=== PATIENT | male | born 1945 | race Caucasian/White ===

== ENCOUNTER 2019-04-11 22:31 | Inpatient (IN) ==
--- OUTSIDE RECORDS SUMMARY | 2019-04-11 22:33 | External Medical Summary | Continuity of Care Document ---
:1945 Author Name Li Moreno Address Unavailable Unavailable , Care Team Providers Name Role Phone Sobeida Moreno, P. Unavailable [email or web address] Active medical history not documented Allergies and Adverse Reactions Allergy history not documented Medications Medications not documented Procedures Procedures not documented Immunizations Immunizations not documented Plan of Treatment Planned Observations Planned Goals not documented Results No Known Results Results not documented Encounters Appointment; Rush Vidales M.D. 15-Jan-2010 15:15 Encounter Diagnosis: Problem not documented
[2019-04-11] MEDS ORDERED: LORazepam 2 MG/4 ML VIAL IV STA (23:01)
[2019-04-11] MEDS ORDERED: VANCOMYCIN HCL 1,500 MG in SODIUM CHLORIDE 0.9% 500 ML IV ONE (23:05)
[2019-04-11] MEDS ORDERED: VANCOMYCIN CONSULT ACTIVE PRN (23:05)
[2019-04-11] MEDS ORDERED: cefTRIAXone SODIUM 2,000 MG in DEXTROSE 5% 50 ML IV STA (23:11)
[2019-04-11] MEDS ORDERED: SODIUM CHLORIDE 0.9% 1000ML 1,000 ML IV SCH (23:15)
[2019-04-11 23:35] LABS: INR 1.3 (0.9-1.1)
[2019-04-11 23:37] LABS: Albumin Level 2.2 gm/dl (3.4-5.0); BUN Creatinine Ratio 21.7 (10-20); Calcium 8.2 mg/dl (8.5-10.1); Est GFR (African American) 53.3
[2019-04-11 23:46] LABS: Hematocrit (blood only) 31.5 % (42-52); Hemoglobin 10.9 g/dL (14.0-18.0); Mean Corpuscular Hgb Conc 34.6 g/dL (32-36); Mean Corpuscular Volume 84.2 fL (80-100); Mean Platelet Volume 10.1 fL (7.4-10.4); Platelet Count 156 K/uL (130-400); RDW Coefficient of Variation 13.5 % (11.5-14.5); RDW Standard Deviation 40.9 fL (36.4-46.3); Red Blood Count 3.74 M/uL (4.7-6.1); White Blood Count 35.38 K/uL (4.8-10.8)
[2019-04-11 23:47] LABS: Basophils # (auto) 0.03 K/uL (0-0.2); Basophils % (auto) 0.1 %; Dohle Bodies 2+; Echinocytes 3+; Eosinophils # (auto) 0.01 K/uL (0-0.5); Immature Granulocytes # (auto) 0.32 K/uL (0.00-0.02); Immature Granulocytes % (auto) 0.9 %; Lymphocytes # (auto) 1.09 K/uL (1.2-3.4); Lymphocytes % (auto) 3.1 %; Monocytes # (auto) 1.37 K/uL (0.11-0.59); Monocytes % (auto) 3.9 %; Neutrophils # (auto) 32.56 K/uL (1.4-6.5); Toxic Vacuolation 1+
[2019-04-11 23:51] LABS: Albumin Globulin Ratio 0.5 (0.9-2); Bilirubin,Total 0.9 mg/dl (0.2-1); C Reactive Protein 30.4 mg/dl (0-0.29); Globulin 4.1 gm/dl (2.5-4.0); Total Protein 6.3 gm/dl (6.4-8.2); Troponin I 1.52 ng/ml (0-0.045)
--- NOTE | 2019-04-12 00:01 | Emergency Department Note ---
Entered by Jose Maria Soares acting as a scribe for History of Present Illness General Chief complaint: Altered Mental Status Stated complaint: AMS, POSSIBLE INFECTION Time Seen by Provider: 04/11/19 22:50 Source: family (daughter) History of Present Illness Onset (ago): hour(s) (several) Location: head Pain Consistency: + other (episode) Quality: + other (altered mental status) Associated symptoms: + other (+feeling "ill", +lightheadness, +foot infection) The patient is a 73 year old male who presents to the Emergency Room with complaints of an episode of altered mental status over the last several hours. The RN stated that the patient is very agitated, words are slurred, and that it took 3 people to give him an IV. The patient's daughter states that he has become violent in the hospital. The daughter states that the patient was taken to their PCP today due to the patient not feeling well and experiencing lightheadedness this morning. The daughter notes that their family doctor at [facility] diagnosed the patient with an infection in left foot. Later this kkio natasha, the daughter notes that she believed the patient was resting, but she reports that the patient would not respond to commands or open eyes a few hours ago. The daughter states that eventually the patient would only respond with, "I am ok". The daughter reports his glucose levels are at 192 which is OK for his standards, according to the daughter. . 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 The daughter also notes that the patient has a glass left eye. Home Medications Home Medications Medication Instructions Recorded Confirmed Type alpha lipoic acid 100 mg PO BID 04/11/19 04/12/19 History aspirin [Aspir-81] 81 mg PO DAILY 04/11/19 04/11/19 History atorvastatin 20 mg PO DAILY 04/11/19 04/12/19 History bimatoprost [Lumigan] 1 drp OPR HS 04/11/19 04/11/19 History cephalexin 500 mg PO TID 04/11/19 04/11/19 History insulin aspart U-100 [Novolog 0 unit SUBCUT DIRECTED 04/11/19 04/12/19 History Flexpen U-100 Insulin] levothyroxine 125 mcg PO 5XWK 04/11/19 04/12/19 History multivitamin 1 tab PO DAILY 04/11/19 04/11/19 History omeprazole 20 mg PO .BIDM 30 MINS. PRIOR 04/11/19 04/11/19 History omeprazole 20 mg PO .BIDM, 30 MIN PRIOR 04/11/19 04/12/19 History sulfamethoxazole-trimethoprim 1 tab PO BID 04/11/19 04/11/19 History [Bactrim DS] timolol 1 drp OPR QAM 04/11/19 04/11/19 History tramadol 50 mg PO Q6H PRN 04/11/19 04/11/19 History urea 1 applic TOPICAL BID PRN 04/11/19 04/11/19 History cilostazol 100 mg PO BID 04/12/19 04/12/19 History gabapentin 100 mg PO TID 04/12/19 04/12/19 History insulin glargine [Lantus Solostar 20 unit SUBCUT DAILY 04/12/19 04/12/19 History U-100 Insulin] Allergies Allergy/AdvReac Type Severity Reaction Status Date / Time No Known Allergies Verified 04/11/19 23:54 Past Med/Surg History Medical History Amputated below knee Foot infection Family History Other No significant family history Social History Feels Safe at Home: Yes Smoking Status: Unknown if ever smoked Review of Systems See HPI for pertinent positives & negatives. and A total of 10 systems reviewed and were otherwise negative Physical Exam Vital Signs Vital Signs - 24 hr 04/11/19 22:21 04/11/19 23:45 04/12/19 00:16 Temperature 37.2 C Temperature Source Oral Sepsis Recent Fever Within 48 Hours No Sepsis Action Taken by Nursing No Action Required Pulse Rate 123 H Pulse Rate [Right Finger] 120 H 123 H Respiratory Rate 23 22 22 Respiratory Effort / Characteristics Non-Labored Respiratory Depth Normal Respiratory Pattern Regular Blood Pressure 118/62 Blood Pressure [Left Arm] 102/82 110/85 Blood Pressure Mean 80 Blood Pressure Mean [Left Arm] 88 93 Pulse Oximetry 90 94 96 Oxygen Delivery Method Room Air Nasal Cannula Nasal Cannula Oxygen Flow Rate 3 3 04/12/19 01:13 Temperature Temperature Source Sepsis Recent Fever Within 48 Hours Sepsis Action Taken by Nursing Pulse Rate Pulse Rate [Right Finger] 128 H Respiratory Rate 20 Respiratory Effort / Characteristics Respiratory Depth Respiratory Pattern Blood Pressure Blood Pressure [Left Arm] 128/85 Blood Pressure Mean Blood Pressure Mean [Left Arm] 99 Pulse Oximetry 96 Oxygen Delivery Method Nasal Cannula Oxygen Flow Rate 3 CONSTITUTIONAL/VITAL SIGNS: Reviewed / noted above. GENERAL: Agitated. INTEGUMENTARY: Warm, dry, and [place]. HEAD: Normocephalic. EYES: without scleral icterus or trauma. ENT/OROPHARYNX: clear and moist. Mucous membrane dry. LYMPHADENOPATHY/NECK: Is supple without lymphadenopathy or meningismus. RESPIRATORY: Lungs clear and equal. CARDIOVASCULAR: Regular rate and rhythm. GI/ABDOMEN: Soft and nontender. No organomegaly or pulsatile mass. No rebound or guarding. Normal bowel sounds. EXTREMITIES: Warm and well perfused. Left foot open wound with purulent drainage and foul smell. Right below knee amputation. BACK: No CVA tenderness. NEUROLOGICAL: Intact without focal deficits. PSYCHIATRIC: normal affect. MUSCULOSKELETAL: Normally developed with good muscle tone. Course 2250: Past medical records reviewed. The patient was evaluated in room A3. A complete history and physical exam was performed. 0002: I reevaluated and updated the patient on his case. 0003: I discussed the case with Dr. Pritesh Grove. Dr. Lambert will further evaluate the patient. Consultations Consultation #1: I discussed the case with Dr. Pritesh Grove. Dr. Lambert will further evaluate the patient. Time: 00:03 Administered Medications Discontinued Medications Lorazepam (Ativan) 2 mg in 4 mls @ 4 mls/min IV NOW STA Stop: 04/11/19 23:02 Last Admin: 04/11/19 23:47 Dose: 4 mls/min Documented by: [id number] Sodium Chloride (Nss 1000ml) 1,000 mls @ 999 mls/hr IV .Q1H1M JACQUI Stop: 04/12/19 00:15 Last Admin: 04/12/19 00:03 Dose: 999 mls/hr Documented by: [id number] Vancomycin HCl 1,500 mg/ (Sodium Chloride) 530 mls @ 200 mls/hr IV NOW ONE; Protocol Stop: 04/12/19 01:34 Last Admin: 04/12/19 00:51 Dose: 200 mls/hr Documented by: [id number] Ceftriaxone Sodium 2,000 mg/ (Dextrose) 70 mls @ 100 mls/hr IV NOW STA; Protocol Stop: 04/11/19 23:52 Last Infusion: 04/12/19 00:51 Dose: 0 mls/hr Documented by: [id number] Admin: 04/12/19 00:10 Dose: 100 mls/hr Documented by: [id number] Medical Decision Making Differential Diagnosis Differential diagnosis: Etiologies such as metabolic, infection, hypo/hyperglycemia, electrolyte abnormalities, cardiac sources, intracerebral event, toxicologic, neurologic, as well as others were entertained. Medical Records Attestation: I reviewed the patient's medical records. Home Medications Current Medication List: was personally reviewed by me Laboratory Data Attestation: I reviewed the patient's lab results. Result diagrams: 04/11/19 22:45 04/11/19 22:45 Lab Results 04/11/19 04/11/19 04/11/19 Range/Units 22:45 22:45 22:45 WBC 35.38 H* (4.8-10.8) K/uL RBC 3.74 L (4.7-6.1) M/uL Hgb 10.9 L (14.0-18.0) g/dL Hct 31.5 L (42-52) % MCV 84.2 (80-100) fL MCH 29.1 (25-34) pg MCHC 34.6 (32-36) g/dL RDW Std Deviation 40.9 (36.4-46.3) fL RDW Coeff of Toy 13.5 (11.5-14.5) % Plt Count 156 (130-400) K/uL MPV 10.1 (7.4-10.4) fL Immature Gran % (Auto) 0.9 % Neut % (Auto) 92.0 % Lymph % (Auto) 3.1 % [place] % (Auto) 3.9 % Eos % (Auto) 0.0 % Baso % (Auto) 0.1 % Immature Gran # (Auto) 0.32 H (0.00-0.02) K/uL Neut # (Auto) 32.56 H (1.4-6.5) K/uL Lymph # (Auto) 1.09 L (1.2-3.4) K/uL [place] # (Auto) 1.37 H (0.11-0.59) K/uL Eos # (Auto) 0.01 (0-0.5) K/uL Baso # (Auto) 0.03 (0-0.2) K/uL Toxic Vacuolation 1+ Dohle Bodies 2+ Echinocytes 3+ ESR 73 H (0-14) mm/hr PT 13.0 H (9.0-12.0) Seconds INR 1.3 H (0.9-1.1) Sodium (136-145) mmol/L Potassium (3.5-5.1) mmol/L Chloride (98-107) mmol/L Carbon Dioxide (21-32) mmol/L Anion Gap (3-11) BUN (7-18) mg/dl Creatinine (0.6-1.4) mg/dl Est Cr Clr Drug Dosing ml/min Est GFR ( Amer) Est GFR (Non-Af Amer) BUN/Creatinine Ratio (10-20) Glucose (70-99) mg/dl POC Lactic Acid Alonso (0.90-1.70) mmol/L Calcium (8.5-10.1) mg/dl Total Bilirubin (0.2-1) mg/dl AST (15-37) U/L ALT (12-78) U/L Alkaline Phosphatase (45-117) U/L Troponin I (0-0.045) ng/ml C-Reactive Protein (0-0.29) mg/dl Total Protein (6.4-8.2) gm/dl Albumin (3.4-5.0) gm/dl Globulin (2.5-4.0) gm/dl Albumin/Globulin Ratio (0.9-2) Procalcitonin (0-0.5) ng/ml 04/11/19 04/11/19 04/11/19 Range/Units 22:45 22:45 22:59 WBC (4.8-10.8) K/uL RBC (4.7-6.1) M/uL Hgb (14.0-18.0) g/dL Hct (42-52) % MCV (80-100) fL MCH (25-34) pg MCHC (32-36) g/dL RDW Std Deviation (36.4-46.3) fL RDW Coeff of Toy (11.5-14.5) % Plt Count (130-400) K/uL MPV (7.4-10.4) fL Immature Gran % (Auto) % Neut % (Auto) % Lymph % (Auto) % [place] % (Auto) % Eos % (Auto) % Baso % (Auto) % Immature Gran # (Auto) (0.00-0.02) K/uL Neut # (Auto) (1.4-6.5) K/uL Lymph # (Auto) (1.2-3.4) K/uL [place] # (Auto) (0.11-0.59) K/uL Eos # (Auto) (0-0.5) K/uL Baso # (Auto) (0-0.2) K/uL Toxic Vacuolation Dohle Bodies Echinocytes ESR (0-14) mm/hr PT (9.0-12.0) Seconds INR (0.9-1.1) Sodium 130 L (136-145) mmol/L Potassium 4.0 (3.5-5.1) mmol/L Chloride 94 L (98-107) mmol/L Carbon Dioxide 22 (21-32) mmol/L Anion Gap 14.0 H (3-11) BUN 32 H (7-18) mg/dl Creatinine 1.47 H (0.6-1.4) mg/dl Est Cr Clr Drug Dosing 42.0 ml/min Est GFR ( Amer) 53.3 Est GFR (Non-Af Amer) 46.0 BUN/Creatinine Ratio 21.7 H (10-20) Glucose 157 H (70-99) mg/dl POC Lactic Acid Alonso 6.18 H (0.90-1.70) mmol/L Calcium 8.2 L (8.5-10.1) mg/dl Total Bilirubin 0.9 (0.2-1) mg/dl AST 32 (15-37) U/L ALT 58 (12-78) U/L Alkaline Phosphatase 448 H (45-117) U/L Troponin I 1.520 H* (0-0.045) ng/ml C-Reactive Protein 30.40 H (0-0.29) mg/dl Total Protein 6.3 L (6.4-8.2) gm/dl Albumin 2.2 L (3.4-5.0) gm/dl Globulin 4.1 H (2.5-4.0) gm/dl Albumin/Globulin Ratio 0.5 L (0.9-2) Procalcitonin 4.23 H (0-0.5) ng/ml Imaging Data Radiologist's Impression: Radiology results as stated below per my review and the radiologist's interpretation: CT HEAD: No cross intracranial hemorrhage, mass effect or edema. No evidence of acute cortical stroke. Periventricular small vessel ischemic change. No midline shift or hydrocephalus. Diffuse parenchymal atrophy. Atherosclerotic calcifications of the carotid siphons and vertebrobasilar arteries. Visualized sinuses and mastoid air cells are clear. Impression: 1. No evidence of acuter intracranial pathology. 2. Diffuse involutional changes and chronic ischemic small vessel white matter disease. ECG Data Attestation: I personally reviewed and interpreted this ECG as follows: Indication: altered mental status Rate (beats per minute): 130 Rhythm: sinus tachycardia Findings: + other (anterior lateral ST depression) and + PVC; no ST elevation Blood Pressure Blood Pressure Findings: Normal blood pressure MDM Narrative This is a 73-year-old male who presents to the ED with a chief complaint of alteration mental status as well as a left foot infection. The patient was seen by the PCP today for a left foot infection. He was started on Keflex. The patient has a large open wound to the left foot. The patient is a poor historian and provides no additional information other than what the family provided as the patient is altered. He was agitated per nursing staff and required 2 mg of IV Ativan to calm down. Positive findings on exam reveal an open wound to left foot that is draining purulent discharge. It is foul- smelling. Chronic findings include a right BKA and a glass left thigh. The patient's white blood cell count was 35,000. Hemoglobin is 10.9. Sed rate is 73. CRP is 30. Troponin was elevated at 1.52. BUN is 32 and creatinine is 1.47. Twelve-lead EKG reveals a sinus tach at a rate of [address] depressions in the anterolateral leads and occasional PVC. The patient was given 1 L of normal saline IV. Additional IV fluids were not administered as his chest x-ray has the appearance of congestive heart failure or fluid overload. He was given IV vancomycin as well as IV Rocephin. I spoke with the hospitalist, who will see the patient for further inpatient evaluation and care. Impression & Plan Altered mental status, Osteomyelitis, Elevated troponin Critical Care Time Critical Care Time: Yes Total Critical Care Time: 42 I have personally spent greater than 42 minutes of critical care time in the direct management of this patient. This includes bedside care, interpretation of diagnostic studies, and testing, discussion with consultants, patient, and family members, and other required patient management activities. This 42 minutes is in excess of all separately billable procedures. Discharge Plan Visit Data Chief Complaint: Altered Mental Status Stated Complaint: AMS, POSSIBLE INFECTION ED Provider: Van Sheth Discharge Problem: Altered mental status, Osteomyelitis, Elevated troponin Patient Disposition: Being Evaluated by Hospitalist Forms Stand Alone Forms: My [facility] Prescriptions Prescriptions: No Action multivitamin Tablet 1 tab PO DAILY RF: 0 atorvastatin 20 mg Tablet 20 mg PO DAILY RF: 0 urea 40 % Cream 1 applic TOPICAL BID PRN (Reason: CALLOUSES ON FEET) RF: 0 sulfamethoxazole-trimethoprim [Bactrim DS] 800-160 mg Tablet 1 tab PO BID RF: 0 aspirin [Aspir-81] 81 mg Tablet,Delayed Release (Dr/Ec) 81 mg PO DAILY RF: 0 tramadol 50 mg Tablet 50 mg PO Q6H PRN (Reason: Pain) RF: 0 cephalexin 500 mg Capsule 500 mg PO TID RF: 0 levothyroxine 125 mcg Tablet 125 mcg PO 5XWK RF: 0 timolol 0.25 % Drops 1 drp OPR QAM RF: 0 omeprazole 20 mg Capsule,Delayed Release(Dr/Ec) 20 mg PO .BIDM 30 MINS. PRIOR RF: 0 Novolog Flexpen U-100 Insulin 100 unit/mL (3 mL) Insulin Pen SUBCUT DIRECTED RF: 0 alpha lipoic acid 100 mg Capsule 100 mg PO BID RF: 0 omeprazole 20 mg Tablet,Delayed Release (Dr/Ec) 20 mg PO .BIDM, 30 MIN PRIOR RF: 0 Lumigan 0.01 % Drops 1 drp OPR HS RF: 0 cilostazol 100 mg Tablet 100 mg PO BID RF: 0 gabapentin 100 mg Capsule 100 mg PO TID RF: 0 Lantus Solostar U-100 Insulin 100 unit/mL (3 mL) Insulin Pen 20 unit SUBCUT DAILY RF: 0 Referrals Referrals: Ajith Alfaro DO [Primary Care Provider] - Discharge Problem: Altered mental status Qualifiers: Altered mental status type: delirium Qualified Code(s): R41.0 - Disorientation, unspecified Osteomyelitis Qualifiers: Osteomyelitis type: acute hematogenous Osteomyelitis location: foot Laterality: left Qualified Code(s): M86.072 - Acute hematogenous osteomyelitis, left ankle and foot The scribe's documentation has been prepared under my direction and personally reviewed by me in its entirety. I confirm that the note above accurately reflects all work, treatment, procedures, and medical decision making performed by me.
[2019-04-12] MEDS ORDERED: VANCOMYCIN HCL 1,000 MG in SODIUM CHLORIDE 0.9% 250 ML IV SCH ×2 (02:51→07:00)
[2019-04-12] MEDS ORDERED: VANCOMYCIN CONSULT ACTIVE PRN ×2 (02:51→07:00)
[2019-04-12] MEDS ORDERED: PIPERACILLIN/TAZOBACTAM 4.5 GM in DEXTROSE 5% 100 ML IV ONE (02:51)
[2019-04-12] MEDS ORDERED: PIPERACILL/TAZOBAC CONSULT ACTIVE PRN (02:51)
[2019-04-12] MEDS ORDERED: ICU PROTOCOL FOR HYPERGLYCEMIA PRN (02:51)
[2019-04-12] MEDS ORDERED: LORazepam 1 MG/2 ML VIAL IV STA (02:53)
--- NOTE | 2019-04-12 02:56 | Critical Care Consultation ---
Date of Consultation April 12, 2019 Assessment & Plan (1) Admitted to intensive care unit: Reason Critically Ill: 73-year-old male with presumed osteomyelitis of the left lower extremity presenting with SIRS and AMS. NEURO - CAM ICU: Positive Altered mental status: CT the head unremarkable. Presumed metabolic encephalopathy in the setting of severe infection. CARDIAC/VASCULAR - Elevated troponin. Likely demand on presentation with tachycardia and labile blood pressures. Trend troponins. Monitor on telemetry. RESPIRATORY - No known history of respiratory disorders. Supplemental O2 as needed. GI/NUTRITION - N.p.o. RENAL/LYTES - ALBERT on CKD. Agree with supplemental fluids. - Lucas in place - Strict I&Os. ENDO - Significant past medical history of diabetes with amputations x2. BSGs per unit protocol. ISS --> gtt per unit policy. HEME - Stable H&H. Significant leukopenia in the setting of infection. ID - SIRS from likely LLE osteomyelitis. Consult orthopedic surgery. Received vancomycin and Rocephin in the emergency department. Changed to Zosyn. Will continue with Rocephin and vancomycin in the setting of presumed osteomyelitis. LINES/IV ACCESS - PIVs x1 DVT PROPHYLAXIS - SCDs This will be billed as a level 5 inpatient chart. Thank you for allowing us to participate in the care of this patient. Please refer to my attending physician's documentation for any further recommendations. (2) Elevated troponin: (3) Osteomyelitis: (4) Altered mental status: (5) NSTEMI (non-ST elevated myocardial infarction): (6) Acute kidney injury superimposed on CKD: Supervising Physician Co-Signing Physician Notes I have seen and examined this patient with Jasen Perea PA-C and agree with his assessment and plan of care. We are going to continue with current plan of care as prescribed. Dr. Natali Fournier. History of Present Illness Attending Physician: Jamie Graff MD Patient is a 73-year-old male with a significant past medical history of diabetes with resultant right lower extremity BKA and left lower extremity partial foot amputation presented to the emergency department today with sepsis presumed from left foot infection. Patient with altered mental status at home which has worsened over the last several hours. Patient was placed on Keflex today for wound infection to the left foot. Presumed source of infection. Patient unable to participate in history of present illness secondary to altered mental status. Allergies Allergy/AdvReac Type Severity Reaction Status Date / Time No Known Allergies Verified 04/11/19 23:54 Home Medications Home Medications Medication Instructions Recorded Confirmed Type alpha lipoic acid 100 mg PO BID 04/11/19 04/12/19 History aspirin [Aspir-81] 81 mg PO DAILY 04/11/19 04/11/19 History atorvastatin 20 mg PO DAILY 04/11/19 04/12/19 History bimatoprost [Lumigan] 1 drp OPR HS 04/11/19 04/11/19 History cephalexin 500 mg PO TID 04/11/19 04/11/19 History insulin aspart U-100 [Novolog 0 unit SUBCUT DIRECTED 04/11/19 04/12/19 History Flexpen U-100 Insulin] levothyroxine 125 mcg PO 5XWK 04/11/19 04/12/19 History multivitamin 1 tab PO DAILY 04/11/19 04/11/19 History omeprazole 20 mg PO .BIDM 30 MINS. PRIOR 04/11/19 04/11/19 History omeprazole 20 mg PO .BIDM, 30 MIN PRIOR 04/11/19 04/12/19 History sulfamethoxazole-trimethoprim 1 tab PO BID 04/11/19 04/11/19 History [Bactrim DS] timolol 1 drp OPR QAM 04/11/19 04/11/19 History tramadol 50 mg PO Q6H PRN 04/11/19 04/11/19 History urea 1 applic TOPICAL BID PRN 04/11/19 04/11/19 History cilostazol 100 mg PO BID 04/12/19 04/12/19 History gabapentin 100 mg PO TID 04/12/19 04/12/19 History insulin glargine [Lantus Solostar 20 unit SUBCUT DAILY 04/12/19 04/12/19 History U-100 Insulin] Patient History Medical History PVD (peripheral vascular disease) Sepsis Acute systolic heart failure Cardiomyopathy Elevated troponin I level Acute kidney injury superimposed on CKD NSTEMI (non-ST elevated myocardial infarction) Arthritis Cardiomyopathy Diabetes Foot infection Surgical History Amputated below knee Amputated toe of left foot Family History Other No significant family history Social History Preferred Language: Turkmen Communication Ability: Unable Second Vp Hr Assessment Required: No Beliefs That Will Affect Care: None Current Living Situation: Family Other Information That Helps Us Care for You: No Feels Safe at Home: Declines to Answer Smoking Status: Unknown if ever smoked Hx Alcohol Use: No Hx Substance Use: No Review of Systems Review of Systems: Unobtainable due to cognitive status Physical Exam Physical Exam: VITAL SIGNS - Vital signs and nursing notes were reviewed. GENERAL - 73-year-old male appearing his stated age. Attempting to pull out IVs. SKIN -ulcerative wound noted to the base of the left foot with purulent discharge and foul smell. HEAD - NC/AT. EYES -glass eye in the left eye. Right eye without significant findings otherwise. EARS - No deformities of external structures noted on gross examination bilaterally. NOSE - Midline and without cyanosis. MOUTH/OROPHARYNX - Without perioral cyanosis. Buccal mucosa pink and dry and without leukoplakia. NECK - Neck with FROM. Supple to palpation. No nuchal rigidity. LUNGS - Chest wall symmetric without accessory muscle use, intercostals retractions, or central cyanosis. Normal vesicular breath sounds CTA B/L. No wheezes, rales, or rhonchi appreciated. CARDIAC - RRR with S1/S2. No murmur, rubs, or gallops appreciated. ABDOMEN - Abdominal contour flat without pulsations or visible masses. BS normoactive all four quadrants. No tenderness, palpable masses, hepatosplenomegaly, or ascites noted. EXTREMITIES -right lower extremity BKA. LEFT lower extremity partial foot amput ation with wound as described above. Moving both extremities equally bilaterally. NEUROLOGIC -no focal neurological deficits. Unable to assess secondary to patient's mental status. Results & Data Vital Signs (Past 12 Hours) Vital Signs Temp Pulse Pulse Resp BP BP Pulse Ox 04/12/19 01:56 121 H 20 105/63 95 04/12/19 01:13 128 H 20 128/85 96 04/12/19 00:16 123 H 22 110/85 96 04/11/19 23:45 120 H 22 102/82 94 04/11/19 22:21 37.2 C 123 H 23 118/62 90 PG Care Time/CCT Total # of Minutes Spent Total Time Spent with Patient: Total time spent is greater than 50% in coordination of care (as documented) at patient's floor/unit and/or counseling patient: (1) Altered mental status Altered mental status type: delirium Qualified Code(s): R41.0 - Disorientation, unspecified (2) Osteomyelitis Laterality: left Osteomyelitis location: foot Osteomyelitis type: acute hematogenous Qualified Code(s): M86.072 - Acute hematogenous osteomyelitis, left ankle and foot
[2019-04-12 03:30] LABS: Appearance Urine Cloudy (Clear); Color Urine Dark Yellow; Epithelial Cell Urine Auto >30 /lpf (0-5); Glucose Urine UA Negative (Negative); Ketones Urine Trace (Negative); Leukocyte Esterase Urine Trace (Negative); Nitrite Urine Positive (Negative); Protein Urine 1+ (Negative); Specific Gravity Urine 1.024 (1.000-1.030); Urobilinogen Urine Negative (Negative)
--- NOTE | 2019-04-12 03:33 | History and Physical Report ---
DATE OF ADMISSION: 04/12/2019 CHIEF COMPLAINT: Sepsis. HISTORY OF PRESENT ILLNESS: This is a 73-year-old male with past medical history significant for type 1 diabetes, peripheral angiopathy due to diabetes, hypothyroidism, hyperlipidemia, reflux esophagitis, history of right BKA, status post transmetatarsal amputation of the left foot, contractures of muscles of both hands, blindness in the left eye. Presents with confusion and found to be in sepsis. The patient lives with daughter. He walks with the help of crutches, but lately his appetite is down and he was not feeling good. Complains of pain in his left foot. He has an ulcer in the left foot for some time now and it was draining today and he was feeling weak and dizzy, so he went to see his family doctor today.Was prescribed antibiotics, Keflex and Bactrim. But later in the day when daughter woke him up at 6.30 she saw him to get confused and agitated. It was difficult even to check his blood sugars, so he was brought in here. The patient was confused and agitated in the ER, he was tachycardic. Labs showed white count of 35,000 and point of care lactic acid was 6.18 and troponin I was 1.5. Procalcitonin was 4.23 and was given a liter of fluid and started on vancomycin and Rocephin and was called for admission. Currently, patient is still agitated, could not get any history from the patient. As per daughter, apparently was doing okay until this happened. There was no fever at home. No cough. He does complain of back pain. His bowels are moving okay and lately he is not urinating much. ALLERGIES: No known drug allergies. PAST MEDICAL HISTORY: As mentioned above. PAST SURGICAL HISTORY: Right below-knee amputation, amputation of metatarsal, left foot. Left lower extremity angioplasty of femoral popliteal. MEDICATIONS: The patient is on alpha-lipoic acid 100 mg b.i.d., omeprazole 20 mg p.o. b.i.d., Keflex and Bactrim, Lipitor 20 mg p.o. daily, levothyroxine 125 mcg p.o. daily, NovoLog sliding scale, Lantus 20 units daily, gabapentin 100 mg p.o. b.i.d., Pletal 100 mg p.o. b.i.d., Lumigan 0.01% ophthalmic solution 1 drop in the right eye at bedtime, timolol 0.25% one drop into right eye daily, urea 40% cream apply to calluses on foot as needed, multivitamins p.o. daily, aspirin 81 mg p.o. daily. SOCIAL HISTORY: Patient is , lives with his daughter. Former smoker, quit in 1989, smoked 3 packs a day for 30 years as per the records, no drug use. REVIEW OF SYMPTOMS: As per HPI. Rest of the review of systems negative. PHYSICAL EXAMINATION: GENERAL: The patient is of moderate built, is currently agitated. VITAL SIGNS: Temperature 37.2, pulse 120s, respiratory rate 20, blood pressure 105/63, oxygen 95% on 3 liters. HEENT: Left eye is a glass eye. Right eye, pupil is reactive to light. No pallor, no icterus. NECK: No JVD, no neck masses, no carotid bruits. CARDIOVASCULAR: S1, S2 heard. Tachycardia. No murmurs. RESPIRATORY SYSTEM: Normal AP diameter. No accessory muscle use. No wheezing, no crackles. ABDOMEN: Soft, bowel sounds, very sluggish. No distention, no guarding. CENTRAL NERVOUS SYSTEM: Currently not oriented, agitated, moves extremities. EXTREMITIES: Status post right BKA, status post transmetatarsal amputation left foot. Left stump on the bottom of the stump has a large ulcer, which is draining and foul smelling. LABORATORY DATA: WBC 35.38, hemoglobin 10.9, hematocrit 31.5, platelets 156. PT 39, INR 1.3. Sodium 130, potassium 4, chloride 94, CO2 of 22, BUN 32, creatinine 1.47, serum glucose 157, point of care lactic acid 6.18, calcium 8.2, total bilirubin 0.9, AST 32, ALT 58, alkaline phosphatase 448, troponin I of 1.52. Procalcitonin 4.23. IMAGING DATA: Chest x-ray, mild congestion seen. No acute infiltrates seen. Ankle x-ray and CT of the head, official report pending. EKG: Sinus tachycardia rate of 130. St depression in the anterolateral leads and poor quality EKG. ASSESSMENT AND PLAN: This is a 73-year-old male who presents with severe sepsis. 1. Severe sepsis, patient is confused. Metabolic encephalopathy from sepsis. . Point of care lactic acid 6.1, white count is 35,000, tachycardic. Received 1 L of fluid and vancomycin and Rocephin in the ER. We will continue with IV vancomycin and IV Zosyn. Follow the blood cultures, urine cultures, and wound cultures. Closely monitor the hemodynamics in the ICU. Got consent for PICC line. We will repeat lactic acid within 6 hours. 2. Diabetes. We will cut back on Lantus to [address] on insulin scale. Follow the blood sugars, follow HbA1c level. 3. Hypothyroidism, placed on IV Synthroid. 4. Gastroesophageal reflux disease, placed on IV Pepcid. 5. Hyperlipidemia. Continue statin whenever patient is able to take. 6. Peripheral vascular disease, statin and aspirin whenever patient is able to take p.o. 7. Acute kidney injury. Baseline creatinine of 1, current creatinine of 1.4, probably secondary to above. Getting fluids. We will follow the labs. 8. Elevated troponin, most likely demand ischemia secondary to severe sepsis. We will follow the serial cardiac enzymes, echocardiogram, and also some congestion on chest x-ray. We will follow the echo. Follow the repeat chest x-ray in the a.m. 9. Hyponatremia. Sodium of 130. Getting fluids. Follow the labs in the a.m. 10. Deep venous thrombosis prophylaxis, heparin subcutaneously. 11. Disposition: Admit to ICU. Level 1 full code only if there is chance of recovery as per my discussion with the daughter. Disposition to be determined. MTDD
[2019-04-12 03:46] LABS: Bilirubin Urine Negative (Negative); Ictotest Urine Negative (Negative)
[2019-04-12] MEDS: SODIUM CHLORIDE 0.9% 1000ML 1,000 ML IV SCH ×2 (03:55→08:13)
[2019-04-12 03:57] LABS: Sperm Urine Present (None Prsent)
[2019-04-12 03:58] LABS: Bacteria Urine Automated 1+ (Negative)
[2019-04-12] MEDS ORDERED: GLUCOSE 10 TABS/TUBE PO PRN (04:15)
[2019-04-12] MEDS ORDERED: DEXTROSE 50% 50 ML SYRINGE IV PRN (04:15)
[2019-04-12] MEDS ORDERED: GLUCOSE 40% GEL 15 GM TUBE PO PRN (04:15)
[2019-04-12] MEDS ORDERED: GLUCAGON FOR INJ 1 MG VIAL SQ PRN (04:15)
[2019-04-12] MEDS ORDERED: CARBOHYDRATES FOR HYPOGLYCEMIA PO PRN (04:15)
[2019-04-12 04:54] LABS: BUN Creatinine Ratio 24.7 (10-20); Calcium 7.9 mg/dl (8.5-10.1); Creatinine Clr Calc Pharmacy 52.3 ml/min; Est GFR (African American) 69.5; Magnesium 1.7 mg/dl (1.8-2.4); Potassium 4.3 mmol/L (3.5-5.1)
[2019-04-12 05:14] LABS: Bilirubin Direct 0.5 mg/dl (0-0.2); Bilirubin,Total 0.8 mg/dl (0.2-1); Phosphorus 3.4 mg/dl (2.5-4.9); Troponin I 2.12 ng/ml (0-0.045)
[2019-04-12 05:21] LABS: Hematocrit (blood only) 30.4 % (42-52); Hemoglobin 10.7 g/dL (14.0-18.0); Mean Corpuscular Hgb Conc 35.2 g/dL (32-36); Mean Corpuscular Volume 84.2 fL (80-100); Mean Platelet Volume 9.8 fL (7.4-10.4); Platelet Count 142 K/uL (130-400); RDW Coefficient of Variation 13.4 % (11.5-14.5); RDW Standard Deviation 40.8 fL (36.4-46.3); Red Blood Count 3.61 M/uL (4.7-6.1); White Blood Count 37.96 K/uL (4.8-10.8)
[2019-04-12 05:22] LABS: Basophils # (auto) 0.02 K/uL (0-0.2); Basophils % (auto) 0.1 %; Dohle Bodies 1+; Echinocytes 1+; Immature Granulocytes # (auto) 0.49 K/uL (0.00-0.02); Immature Granulocytes % (auto) 1.3 %; Lymphocytes # (auto) 0.89 K/uL (1.2-3.4); Lymphocytes % (auto) 2.3 %; Monocytes # (auto) 1.29 K/uL (0.11-0.59); Monocytes % (auto) 3.4 %; Neutrophils # (auto) 35.27 K/uL (1.4-6.5); Neutrophils % (auto) 92.9 %; Platelet Estimate Normal (Normal); Toxic Vacuolation 1+
[2019-04-12] MEDS ORDERED: HEPARIN SOD 5,000 UNIT/0.5 ML VIAL SQ SCH (06:00)
--- NOTE | 2019-04-12 06:44 | CT Scan Report ---
CT SCAN OF THE ABDOMEN AND PELVIS WITHOUT CONTRAST CLINICAL HISTORY: Unexplained sepsis. Elevated alkaline phosphatase. COMPARISON STUDY: No previous studies for comparison. TECHNIQUE: CT scan of the abdomen and pelvis was performed from the lung bases to the proximal femurs . Images are reviewed in the axial, sagittal, and coronal planes. IV contrast was not administered fo r this examination. A dose lowering technique was utilized adhering to the principles of ALARA. CT DOSE: 623.29 mGy.cm FINDINGS: Lower chest: There is significant respiratory motion artifact. There are bilateral pleural effusions with associated dependent basilar airspace opacities. Liver: The unenhanced liver is normal in size, contour, and attenuation. There is no intrahepatic samantha iary ductal dilatation. Gallbladder: Unremarkable. Spleen: Normal in size and attenuation. Pancreas: Unremarkable. Adrenal glands: Unremarkable. Kidneys: The unenhanced kidneys are normal in size without hydronephrosis. There is no contour deform ing renal mass lesion. No renal calculi are identified. Bowel: There are no transition zones indicate bowel obstruction. There is no evidence of acute divert iculitis. There are no findings to indicate acute appendicitis. There is suspected calcific hyperdens e material within the distal appendix. Peritoneum: There is no intraperitoneal free air or abdominal ascites. There is a fat-containing umbi lical hernia. Vasculature: The abdominal aorta is normal in course and caliber. Adenopathy: None. Pelvic viscera: There is an indwelling Lucas catheter present. Skeletal structures: There are old pubic rami fractures. There is an old deformity left iliac crest. IMPRESSION: 1. Examination compromised due to motion artifact 2. Bilateral pleural effusions with associated basilar airspace opacities 3. No evidence of bowel obstruction. No evidence of free air. 4. No evidence of acute appendicitis. No evidence of acute diverticulitis. Electronically signed by: Beto Ridley M.D. 04/12/2019 6:43 AM
--- NOTE | 2019-04-12 06:54 | XRay Report ---
XR chest 1V portable CLINICAL HISTORY: Acute change in mental status COMPARISON STUDY: 01/05/2010 FINDINGS: There is radiographic evidence of pulmonary edema. There is no lobar consolidation. The hea rt is borderline enlarged. Trace pleural effusions are suspected.[ IMPRESSION: Pulmonary edema pattern. Clinical and radiographic follow-up is recommended. Electronically signed by: Beto Ridley M.D. 04/12/2019 6:53 AM
--- NOTE | 2019-04-12 06:58 | XRay Report ---
XR ankle LT 2V CLINICAL HISTORY: Pain. Possible osteomyelitis. ULCERATION. COMPARISON: None. DISCUSSION: The bones are markedly osteopenic. There postsurgical changes of a midfoot amputation. Th ere is a large ulceration. Subtle erosive changes are suspected within the underlying bone. This coul d indicate osteomyelitis. MRI would be considered the test of choice in follow-up. IMPRESSION: 1. Severe osteopenia 2. Postsurgical changes of a prior midfoot amputation 3. Large soft tissue ulceration with subtle underlying bony erosive change. Osteomyelitis must be con sidered. MRI would be considered the test of choice in follow-up. Electronically signed by: Beto Ridley M.D. 04/12/2019 6:57 AM
--- NOTE | 2019-04-12 07:11 | CT Scan Report ---
RIGHT FOOT CT CT DOSE: 133.99 mGy.cm HISTORY: Right foot wound. eval ??osteo. Unable to MRI TECHNIQUE: Multiaxial CT images of the right foot were performed and reformatted in the sagittal and coronal plane without the use of contrast. A dose lowering technique was utilized adhering to the pr inciples of JUSTIN. COMPARISON: None. FINDINGS: Motion artifact. This results in suboptimal evaluation. Evidence for prior midfoot amputati on. Large skin ulceration at the distal foot measuring approximate 4.6 x 4.1 cm. Multiple erosions wi thin the distal edge of the residual tarsal bones most pronounced at the residual cuboid bone with as sociated soft tissue gas. There is also a small amount of soft tissue gas within the calcaneocuboid j oint and anterior calcaneus with an associated erosion. Findings likely represent osteomyelitis. The gas and erosive changes at the calcaneocuboid joint could represent a superimposed septic arthritis. There is skin thickening within the distal residual foot. 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 No fracture or dislocation identified. IMPRESSION: 1. Large skin ulceration within the distal mid foot at the site of prior amputation with multiple und erlying bony erosions and soft tissue gas within the residual tarsal bones. This is highly suspicious for osteomyelitis. 2. There is also gas and erosive changes at the calcaneocuboid joint which may represent a secondary septic arthritis. Electronically signed by: Kamari Neumann M.D. 04/12/2019 7:10 AM
--- NOTE | 2019-04-12 07:17 | CT Scan Report ---
HEAD CT NONCONTRAST CT DOSE: 614.27 mGy.cm HISTORY: Altered mental status. TECHNIQUE: Multiaxial CT images of the head were performed without the use of intravenous contrast. A utomated exposure control was utilized for this study. A dose lowering technique was utilized adheri ng to the principles of ALARA. Comparison: None. Findings: The paranasal sinuses and mastoid air cells are clear. The calvarium and skull base are int act. There is no mass, hematoma, midline shift, acute infarct. White matter hypodensity is nonspecifi c but suggestive of microvascular ischemic change. The ventricles and sulci demonstrate mild age-rela braydon involutional changes. 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 Extensive calcifications within the bilateral carotid siphons. Punctate lucency within the right frontal extra-axial space is likely artifact. There is a left globe prosthesis. Impression: No acute intracranial abnormality. Atrophy and microvascular ischemic changes. Electronically signed by: Kamari Neumann M.D. 04/12/2019 7:16 AM
[2019-04-12] MEDS ORDERED: INSULIN ASPART 100 UNITS/ML 3 ML PEN SC SCH ×2 (07:30→12:00)
--- NOTE | 2019-04-12 07:59 | Pharmacy Report ---
Pharmacy Abx Initial Consult - Date of Service April 12, 2019 - Pharmacy Dosing Scope Date of Consult: 04/12/19 Consultation requested by: Jasen Perea PA-C Pharmacy is consulted to initiate Vancomycin IV dosing therapy, order appropriate labs and adjust drug dose/frequency. - Subjective The patient is a 73 year old M admitted on 04/12/19 01:50. - Objective Height: 5 ft 8 in Weight: 73.6 kg Vital Signs (Past 12hrs): Vital Signs Temp Pulse Pulse Pulse Resp BP BP 04/12/19 06:00 113 H 20 126/68 04/12/19 04:00 36.5 C 115 H 20 125/73 04/12/19 03:00 04/12/19 02:53 36.4 C L 124 H 20 113/74 04/12/19 02:51 04/12/19 01:56 121 H 20 105/63 04/12/19 01:13 128 H 20 128/85 04/12/19 00:16 123 H 22 110/85 04/11/19 23:45 120 H 22 102/82 04/11/19 22:21 37.2 C 123 H 23 118/62 Pulse Ox Pulse Ox 04/12/19 06:00 94 04/12/19 04:00 96 04/12/19 03:00 92 04/12/19 02:53 04/12/19 02:51 95 04/12/19 01:56 95 04/12/19 01:13 96 04/12/19 00:16 96 04/11/19 23:45 94 04/11/19 22:21 90 Lab Results (24hrs): Laboratory Tests (24 Hours) 04/12/19 04/12/19 04/11/19 04:25 04:25 22:45 WBC 37.96 H* Neut # (Auto) 35.27 H ESR Creatinine 1.18 Est Cr Clr Drug Dosing 52.3 C-Reactive Protein Procalcitonin 4.23 H 04/11/19 04/11/19 04/11/19 22:45 22:45 22:45 WBC 35.38 H* Neut # (Auto) 32.56 H ESR 73 H Creatinine 1.47 H Est Cr Clr Drug Dosing 42.0 C-Reactive Protein 30.40 H Procalcitonin Micro Results: Laboratory Tests 04/12/19 02:45 Nasal Screen MRSA (PCR) Negative 04/12/19 Unknown Urine Culture - Pending Urine,Clean Catch 04/11/19 23:39 Aerobic Blood Culture - Pending Blood Anaerobic Blood Culture - Pending 04/11/19 23:25 Aerobic Blood Culture - Pending Blood Anaerobic Blood Culture - Pending 04/11/19 23:10 Gram Stain - Pending Foot,Left Wound Culture - Pending - Risk Factors for Resistance * Antimicrobial use within the last 90 days: Bactrim, Keflex - Assessment & Plan Assessment 73 year old M admitted for sepsis secondary to suspected osteomyelitis of L foot Pertinent PMH includes T1DM, R BKA, and L midfoot amputation Per documentation, L foot has a large ulcer with drainage that is foul smelling CT of L foot shows large ulceration with surrounding soft tissue gas highly suspicious of osteomyelitis Patient's lactic acid trending down 6.18 --> 2.9, Procal 4.23, WBCs 37.9, afebrile Plan IV Vancomycin, Ceftriaxone, and Metronidazole for treatment of Osteomyelitis Vancomycin IV * Estimated PK Parameters: Vd 0.7 L/kg, Jose 0.048 hr-1, t1/2 ~14 hrs * Loading dose: 1500 mg (~20 mg/kg) * Maintenance dose: 1000 mg IV (~14 mg/kg) every 12 hours * Goal trough level for osteomyelitis: 15 to 20 mcg/mL * Trough level ordered for 04/13/19 at 1130 prior to the 3rd dose (given patient's age and renal function) Pharmacy will continue to follow and will adjust dose/frequency as necessary. Thank you.
[2019-04-12] MEDS ORDERED: PIPERACILLIN/TAZOBACTAM 4.5 GM in DEXTROSE 5% 100 ML IV SCH (08:00)
[2019-04-12] MEDS: cefTRIAXone SODIUM 2,000 MG in DEXTROSE 5% 50 ML IV SCH (08:13)
[2019-04-12] MEDS: TIMOLOL MALEATE 0.25% OP SOLN 5 ML BTL OPR SCH (08:15)
[2019-04-12] MEDS: FAMOTIDINE 20 MG in SYRINGE 3 ML IV SCH ×2 (08:15→19:47)
[2019-04-12] MEDS ORDERED: PHARMACY GLYCEMIC MGMT CONSULT PRN (08:52)
[2019-04-12] MEDS ORDERED: LEVOTHYROXINE SODIUM 62.5 MCG in SYRINGE 0 ML IV SCH (09:00)
[2019-04-12] MEDS ORDERED: INSULIN GLARGINE SOLOSTAR 100 UNITS/ML 3 ML PEN SC SCH (09:00)
[2019-04-12] MEDS: ASPIRIN 81 MG ECTAB PO SCH (09:24)
[2019-04-12] MEDS: CILOSTAZOL 100 MG TAB PO SCH ×2 (09:24→19:48)
[2019-04-12] MEDS: GABAPENTIN 100 MG CAP PO SCH ×3 (09:24→19:45)
[2019-04-12] MEDS: ATORVASTATIN 20 MG TAB PO SCH (09:24)
[2019-04-12] MEDS: metroNIDAZOLE 500 MG/100 ML BAG IV SCH ×2 (09:41→19:43)
[2019-04-12] MEDS: MAGNESIUM SULFATE / D5W 1 GM/100 ML BAG IV SCH ×2 (11:30→12:44)
[2019-04-12] MEDS: VANCOMYCIN HCL 1,000 MG in SODIUM CHLORIDE 0.9% 250 ML IV SCH (11:31)
[2019-04-12] MEDS ORDERED: METOPROLOL TARTRATE 1 MG/ML VIAL IV PRN (12:16)
--- NOTE | 2019-04-12 12:26 | Cardiology Consultation ---
Date of Consultation April 12, 2019 Assessment & Plan (1) Elevated troponin I level: (2) Cardiomyopathy: (3) Acute systolic heart failure: (4) Sepsis: (5) Osteomyelitis: (6) Altered mental status: (7) PVD (peripheral vascular disease): Complex 73-year old type I diabetic admitted with change of mental status and sepsis related to osteomyelitis. Newly diagnosed cardiomyopathy with evidence of acute decompensated heart failure per chest x-ray. Chronicity of cardiomypathy is unknown at this time. Troponins elevation likely type II event secondary to demand ischemia in the setting of tachycardia, sepsis, presumed underlying CAD, with increased oxygen demands. Agree with cautious IV hydration in the setting of sepsis with close monitoring of respiratory status. Patient may require small dose of IV Lasix to maintain adequate oxygenation. Initiate heparin infusion x48 hours with close observation. Add low-dose IV beta-latisha and therapy as tolerated to decrease heart rate and lower oxygen demands at this time. Restart aspirin, cilostazol, and statin therapy when patient able to tolerate oral medications. I would have a low threshold for discontinuing beta- latisha if there is evidence of progressive hypotension. Supportive care and treatment of sepsis as per exterminator helper termite service. Patient considered high perioperative cardiovascular risk for any operations including amputation at this time. History of Present Illness Reason for Consultation: Elevated troponin Requesting Physician: Dr. Jamie Graff Attending Physician: Jamie Graff MD History of Present Illness 73-year-old type I diabetic admitted through the emergency department secondary to change in mental status and sepsis. Patient noted to be agitated with slurred speech. Combative overnight requiring several doses of IV Ativan. Patient currently responsive to verbal and painful stimuli. Does not answer questions appropriately. He is sedated at this time. History taken from chart documents as well as discussion with consulting physicians. Cardiology consultation requested due to abnormal resting 2D transthoracic echocardiogram demonstrating severe LV systolic dysfunction with ejection fraction of 25 to 30% elevated troponin. There is no report of chest discomfort or anginal symptoms prior to admission. Patient evaluated by his primary care physician 04/11/2019 due to a lower extremity ulcer. Carries a history of diabetic ulcers requiring amputation of the right lower extremity below the knee, toe amputation, and left-sided transmetatarsal amputation in the past. History of peripheral vascular disease with high-grade left distal popliteal stenosis, occlusion of left posterior tibial artery, [employer] of left anterior tibial artery followed by cryoplasty of the left anterior tibial artery in 2009. Previously followed by vascular surgery and interventional cardiology due to gangrene of the lower extremities. Currently the patient unable to answer questions. No fevers per nursing. He is tachypneic and tachycardic. Blood pressure remains normotensive to borderline hypertensive. Stat ECG demonstrates no ischemic ECG changes. Allergies Allergy/AdvReac Type Severity Reaction Status Date / Time No Known Allergies Verified 04/11/19 23:54 Home Medications Home Medications Medication Instructions Recorded Confirmed Type alpha lipoic acid 100 mg PO BID 04/11/19 04/12/19 History aspirin [Aspir-81] 81 mg PO DAILY 04/11/19 04/11/19 History atorvastatin 20 mg PO DAILY 04/11/19 04/12/19 History bimatoprost [Lumigan] 1 drp OPR HS 04/11/19 04/11/19 History cephalexin 500 mg PO TID 04/11/19 04/11/19 History insulin aspart U-100 [Novolog 0 unit SUBCUT DIRECTED 04/11/19 04/12/19 History Flexpen U-100 Insulin] levothyroxine 125 mcg PO 5XWK 04/11/19 04/12/19 History multivitamin 1 tab PO DAILY 04/11/19 04/11/19 History omeprazole 20 mg PO .BIDM 30 MINS. PRIOR 04/11/19 04/11/19 History omeprazole 20 mg PO .BIDM, 30 MIN PRIOR 04/11/19 04/12/19 History sulfamethoxazole-trimethoprim 1 tab PO BID 04/11/19 04/11/19 History [Bactrim DS] timolol 1 drp OPR QAM 04/11/19 04/11/19 History tramadol 50 mg PO Q6H PRN 04/11/19 04/11/19 History urea 1 applic TOPICAL BID PRN 04/11/19 04/11/19 History cilostazol 100 mg PO BID 04/12/19 04/12/19 History gabapentin 100 mg PO TID 04/12/19 04/12/19 History insulin glargine [Lantus Solostar 20 unit SUBCUT DAILY 04/12/19 04/12/19 History U-100 Insulin] Patient History Medical History PVD (peripheral vascular disease) Sepsis Acute systolic heart failure Cardiomyopathy Elevated troponin I level Acute kidney injury superimposed on CKD NSTEMI (non-ST elevated myocardial infarction) Arthritis Cardiomyopathy Diabetes Foot infection Surgical History Amputated below knee Amputated toe of left foot Family History Other No significant family history Social History Preferred Language: Guatemalan Communication Ability: Unable Beliefs That Will Affect Care: None Current Living Situation: Family Feels Safe at Home: Declines to Answer Smoking Status: Unknown if ever smoked Hx Alcohol Use: No Hx Substance Use: No Review of Systems Review of Systems: All systems reviewed & are unremarkable except as noted in HPI & below Physical Exam Physical Exam: General: Acutely ill, sedated, responds to verbal and painful stimuli. HEENT: Mucous membranes dry. Normocephalic. Atraumatic. Conjunctiva pink, no scleral icterus. Neck: No carotid bruits, No JVD. Heart: Regular, tachycardic, normal S-1 and S-2 no S-3 or S-4 gallop. No murmurs or rub appreciated. PMI is not displaced. No RV heave. Lungs: Clear bilateral without rales , rhonchi, or wheeze. Abdomen: Normal bowel sounds. Soft. Nontender. No ma sses or organomegaly. No abdominal bruits. Extremities: Right-sided BKA, left lower extremity ulcerations. pulses: radial=2/4. Neuro: Patient moves all extremities. No facial asymmetry or contracture. Unable to follow commands due to sedation. Results & Data Vital Signs (Past 12 Hours) Vital Signs Temp Pulse Pulse Pulse Resp BP BP 04/12/19 11:00 113 H 31 H 128/70 04/12/19 10:00 113 H 35 H 130/72 04/12/19 09:00 118 H 29 H 104/80 04/12/19 08:00 37.2 C 112 H 38 H 119/76 04/12/19 07:00 116 H 33 H 126/82 04/12/19 06:00 113 H 20 126/68 04/12/19 04:00 36.5 C 115 H 20 125/73 04/12/19 03:00 04/12/19 02:53 36.4 C L 124 H 20 113/74 04/12/19 02:51 04/12/19 01:56 121 H 20 105/63 04/12/19 01:13 128 H 20 128/85 Pulse Ox Pulse Ox 04/12/19 11:00 100 04/12/19 10:00 96 04/12/19 09:00 94 04/12/19 08:00 93 04/12/19 07:00 96 04/12/19 06:00 94 04/12/19 04:00 96 04/12/19 03:00 92 04/12/19 02:53 04/12/19 02:51 95 04/12/19 01:56 95 04/12/19 01:13 96 Laboratory Results Laboratory Results - last 24 hr 04/11/19 04/11/19 04/11/19 22:45 22:45 22:45 WBC 35.38 H* RBC 3.74 L Hgb 10.9 L Hct 31.5 L MCV 84.2 MCH 29.1 MCHC 34.6 RDW Std Deviation 40.9 RDW Coeff of Toy 13.5 Plt Count 156 MPV 10.1 Immature Gran % (Auto) 0.9 Neut % (Auto) 92.0 Lymph % (Auto) 3.1 Mineral % (Auto) 3.9 Eos % (Auto) 0.0 Baso % (Auto) 0.1 Immature Gran # (Auto) 0.32 H Neut # (Auto) 32.56 H Lymph # (Auto) 1.09 L Mineral # (Auto) 1.37 H Eos # (Auto) 0.01 Baso # (Auto) 0.03 Toxic Vacuolation 1+ Dohle Bodies 2+ Platelet Estimate Echinocytes 3+ ESR 73 H PT 13.0 H INR 1.3 H Sodium Potassium Chloride Carbon Dioxide Anion Gap BUN Creatinine Est Cr Clr Drug Dosing Est GFR ( Amer) Est GFR (Non-Af Amer) BUN/Creatinine Ratio Glucose POC Glucose POC Lactic Acid Alonso Lactate Calcium Phosphorus Magnesium Total Bilirubin Direct Bilirubin AST ALT Alkaline Phosphatase Troponin I C-Reactive Protein Total Protein Albumin Globulin Albumin/Globulin Ratio Procalcitonin Urine Color Urine Appearance Urine pH Ur Specific [place] Urine Protein Urine Glucose (UA) Urine Ketones Urine Blood Urine Nitrite Urine Bilirubin Urine Urobilinogen Ur Leukocyte Esterase Urine WBC (Auto) Urine RBC (Auto) U Hyaline Cast (Auto) U Epithel Cells (Auto) Urine Bacteria (Auto) Ur Renal Epithelial Cell Granular Casts Urine Yeast Urine Sperm Nasal Screen MRSA (PCR) 04/11/19 04/11/19 04/11/19 22:45 22:45 22:59 WBC RBC Hgb Hct MCV MCH MCHC RDW Std Deviation RDW Coeff of Toy Plt Count MPV Immature Gran % (Auto) Neut % (Auto) Lymph % (Auto) Mineral % (Auto) Eos % (Auto) Baso % (Auto) Immature Gran # (Auto) Neut # (Auto) Lymph # (Auto) Mineral # (Auto) Eos # (Auto) Baso # (Auto) Toxic Vacuolation Dohle Bodies Platelet Estimate Echinocytes ESR PT INR Sodium 130 L Potassium 4.0 Chloride 94 L Carbon Dioxide 22 Anion Gap 14.0 H BUN 32 H Creatinine 1.47 H Est Cr Clr Drug Dosing 42.0 Est GFR ( Amer) 53.3 Est GFR (Non-Af Amer) 46.0 BUN/Creatinine Ratio 21.7 H Glucose 157 H POC Glucose POC Lactic Acid Alonso 6.18 H Lactate Calcium 8.2 L Phosphorus Magnesium Total Bilirubin 0.9 Direct Bilirubin AST 32 ALT 58 Alkaline Phosphatase 448 H Troponin I 1.520 H* C-Reactive Protein 30.40 H Total Protein 6.3 L Albumin 2.2 L Globulin 4.1 H Albumin/Globulin Ratio 0.5 L Procalcitonin 4.23 H Urine Color Urine Appearance Urine pH Ur Specific [place] Urine Protein Urine Glucose (UA) Urine Ketones Urine Blood Urine Nitrite Urine Bilirubin Urine Urobilinogen Ur Leukocyte Esterase Urine WBC (Auto) Urine RBC (Auto) U Hyaline Cast (Auto) U Epithel Cells (Auto) Urine Bacteria (Auto) Ur Renal Epithelial Cell Granular Casts Urine Yeast Urine Sperm Nasal Screen MRSA (PCR) 04/12/19 04/12/19 04/12/19 02:45 04:25 04:25 WBC 37.96 H* RBC 3.61 L Hgb 10.7 L Hct 30.4 L MCV 84.2 MCH 29.6 MCHC 35.2 RDW Std Deviation 40.8 RDW Coeff of Toy 13.4 Plt Count 142 MPV 9.8 Immature Gran % (Auto) 1.3 Neut % (Auto) 92.9 Lymph % (Auto) 2.3 Mineral % (Auto) 3.4 Eos % (Auto) 0.0 Baso % (Auto) 0.1 Immature Gran # (Auto) 0.49 H Neut # (Auto) 35.27 H Lymph # (Auto) 0.89 L Mineral # (Auto) 1.29 H Eos # (Auto) 0.00 Baso # (Auto) 0.02 Toxic Vacuolation 1+ Dohle Bodies 1+ Platelet Estimate Normal Echinocytes 1+ ESR PT INR Sodium Potassium Chloride Carbon Dioxide Anion Gap BUN Creatinine Est Cr Clr Drug Dosing Est GFR ( Amer) Est GFR (Non-Af Amer) BUN/Creatinine Ratio Glucose POC Glucose POC Lactic Acid Alonso Lactate 2.9 H* Calcium Phosphorus Magnesium Total Bilirubin Direct Bilirubin AST ALT Alkaline Phosphatase Troponin I C-Reactive Protein Total Protein Albumin Globulin Albumin/Globulin Ratio Procalcitonin Urine Color Urine Appearance Urine pH Ur Specific [place] Urine Protein Urine Glucose (UA) Urine Ketones Urine Blood Urine Nitrite Urine Bilirubin Urine Urobilinogen Ur Leukocyte Esterase Urine WBC (Auto) Urine RBC (Auto) U Hyaline Cast (Auto) U Epithel Cells (Auto) Urine Bacteria (Auto) Ur Renal Epithelial Cell Granular Casts Urine Yeast Urine Sperm Nasal Screen MRSA (PCR) Negative 04/12/19 04/12/19 04/12/19 04:25 07:45 07:45 WBC RBC Hgb Hct MCV MCH MCHC RDW Std Deviation RDW Coeff of Toy Plt Count MPV Immature Gran % (Auto) Neut % (Auto) Lymph % (Auto) Mineral % (Auto) Eos % (Auto) Baso % (Auto) Immature Gran # (Auto) Neut # (Auto) Lymph # (Auto) Mineral # (Auto) Eos # (Auto) Baso # (Auto) Toxic Vacuolation Dohle Bodies Platelet Estimate Echinocytes ESR PT INR Sodium 131 L Potassium 4.3 Chloride 100 Carbon Dioxide 21 Anion Gap 10.0 BUN 29 H Creatinine 1.18 Est Cr Clr Drug Dosing 52.3 Est GFR ( Amer) 69.5 Est GFR (Non-Af Amer) 60.0 BUN/Creatinine Ratio 24.7 H Glucose 151 H POC Glucose POC Lactic Acid Alonso Lactate 2.3 H* Calcium 7.9 L Phosphorus 3.4 Magnesium 1.7 L Total Bilirubin 0.8 Direct Bilirubin 0.5 H AST 34 ALT 50 Alkaline Phosphatase 389 H Troponin I 2.120 H* 2.880 H* C-Reactive Protein Total Protein 6.0 L Albumin 2.0 L Globulin Albumin/Globulin Ratio Procalcitonin Urine Color Urine Appearance Urine pH Ur Specific [place] Urine Protein Urine Glucose (UA) Urine Ketones Urine Blood Urine Nitrite Urine Bilirubin Urine Urobilinogen Ur Leukocyte Esterase Urine WBC (Auto) Urine RBC (Auto) U Hyaline Cast (Auto) U Epithel Cells (Auto) Urine Bacteria (Auto) Ur Renal Epithelial Cell Granular Casts Urine Yeast Urine Sperm Nasal Screen MRSA (PCR) 04/12/19 04/12/19 04/12/19 08:17 10:53 Unknown WBC RBC Hgb Hct MCV MCH MCHC RDW Std Deviation RDW Coeff of Toy Plt Count MPV Immature Gran % (Auto) Neut % (Auto) Lymph % (Auto) Mineral % (Auto) Eos % (Auto) Baso % (Auto) Immature Gran # (Auto) Neut # (Auto) Lymph # (Auto) Mineral # (Auto) Eos # (Auto) Baso # (Auto) Toxic Vacuolation Dohle Bodies Platelet Estimate Echinocytes ESR PT INR Sodium Potassium Chloride Carbon Dioxide Anion Gap BUN Creatinine Est Cr Clr Drug Dosing Est GFR ( Amer) Est GFR (Non-Af Amer) BUN/Creatinine Ratio Glucose POC Glucose 156 H POC Lactic Acid Alonso Lactate Calcium Phosphorus Magnesium Total Bilirubin Direct Bilirubin AST ALT Alkaline Phosphatase Troponin I Pending C-Reactive Protein Total Protein Albumin Globulin Albumin/Globulin Ratio Procalcitonin Urine Color Dark Yellow Urine Appearance Cloudy A Urine pH 5.0 Ur Specific [place] 1.024 Urine Protein 1+ H Urine Glucose (UA) Negative Urine Ketones Trace H Urine Blood Negative Urine Nitrite Positive A Urine Bilirubin Negative Urine Urobilinogen Negative Ur Leukocyte Esterase Trace H Urine WBC (Auto) 1-5 Urine RBC (Auto) 0-4 U Hyaline Cast (Auto) 10-30 H U Epithel Cells (Auto) >30 H Urine Bacteria (Auto) 1+ H Ur Renal Epithelial Cell 5-10 H Granular Casts 1-5 H Urine Yeast Not Reportable Urine Sperm Present A Nasal Screen MRSA (PCR) (1) Sepsis Sepsis type: sepsis due to unspecified organism Qualified Code(s): A41.9 - Sepsis, unspecified organism (2) Altered mental status Altered mental status type: delirium Qualified Code(s): R41.0 - Disorientation, unspecified (3) Cardiomyopathy Cardiomyopathy type: unspecified Qualified Code(s): I42.9 - Cardiomyopathy, unspecified (4) Osteomyelitis Laterality: left Osteomyelitis location: foot Osteomyelitis type: acute hematogenous Qualified Code(s): M86.072 - Acute hematogenous osteomyelitis, left ankle and foot
--- NOTE | 2019-04-12 12:39 | Pharmacy Report ---
Glycemic Control Consultation - Date of Service April 12, 2019 - Scope Scope: Glycemic Pharmacist consulted for glycemic control and to write orders per [facility] inpatient glycemic control protocol - Objective Weight: 73.6 kg Accuchecks BSG (last 24hrs): 04/11/19 04/12/19 04/12/19 22:45 04:25 08:17 Glucose 157 H 151 H POC Glucose 156 H Laboratory Data (last 24hrs): 04/11/19 04/12/19 22:45 04:25 Potassium 4.0 4.3 Carbon Dioxide 22 21 Anion Gap 14.0 H 10.0 Creatinine 1.47 H 1.18 Est Cr Clr Drug Dosing 42.0 52.3 - Recent Pertinent Medications Outpatient Anti-diabetic Regimen: * Lantus 20 units SC daily * Novolog sliding scale (4-14 units SC, starting with BSG above 100 mg/dL) * A1c unknown. On order for 04/13/19 Risk Factors for Insulin Resistance: * Infection: possible L foot osteomyelitis - on ceftriaxone, metronidazole, and vancomycin * Recent Surgery: no, but surgery consulted and considering BKA * Diet: NPO - Assessment & Plan Assessment & Plan: ASSESSMENT: * 73 yo M with diabetes admitted with likely osteomyelitis of L foot * Presumed T2DM based on chart review - the patient does not have prandial insulin other than sliding scale, on a remote previous admission he did not have rapid acting insulin at all, and onset of diabetes was in his mid-20's * Will decrease dose of Lantus by 50% for NPO status * Will not be overly aggressive with additional Lantus this PM as BKA is being considered and patient is also likely to remain NPO. Instead, will add two overnight checks to help correct BSG from (possibly) insufficient Lantus PLAN FOR INPATIENT GLYCEMIC CONTROL: * Basal insulin: Lantus 10 units SQ x1. Additional Lantus tonight based on BSG as follows: * 0 units for BSG less than 180 mg/dL * 5 units for BSG 180-220 mg/dL * 10 units for BSG greater than 220 mg/dL * Bolus insulin: NovoLog SC q4h * Goal Range: Low 120 mg/dL - High 160 mg/dL * Correction Factor: 30 mg/dL/unit * Nutritional / Prandial insulin per carb ratio of 1 unit per 11 grams CHO consumed * Please note that the plan above was derived based on current level of insulin resistance and hospital stress. These recommendations are appropriate for inpatient admission only. Plan of care upon discharge will need to be reassessed to avoid potential outpatient hypo/hyperglycemia. Thank you.
[2019-04-12] MEDS ORDERED: HEPARIN SODIUM/DEXTROSE 25,000 UNITS/500 ML BAG IV SCH (13:00)
[2019-04-12] MEDS ORDERED: HEPARIN IV BOLUS 6,000 UNITS in SYRINGE 0 ML IV ONE (13:15)
[2019-04-12 13:27] LABS: INR 1.3 (0.9-1.1); Partial Thromboplastin Ratio 1.4; Prothrombin Time 12.7 Seconds (9.0-12.0)
[2019-04-12] MEDS ORDERED: fentaNYL citrate 100 MCG/2 ML VIAL ONE (14:29)
[2019-04-12] MEDS ORDERED: PROPOFOL IV EMULSION 10 MG/ML 20 ML VIAL IV ONE (14:29)
[2019-04-12] MEDS ORDERED: LIDOCAINE HCL 2% 2 ML VIAL/AMP(20MG/ML) INFIL ONE (14:29)
--- NOTE | 2019-04-12 14:33 | Hospitalist Progress Note ---
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 Presents with confusion and found to be in sepsis. Severe sepsis Metabolic Encephalopathy Peripheral vascular disease -admission to ICU because of sepsis (Point of care lactic acid 6.1, white count is 35,000, tachycardic), Received 1 L of fluid and vancomycin and Rocephin in the ER -currently on IV vancomycin and ceftriaxone and metronidazole via PICC line -admission blood culture has returned 1 bottle with Gram positive cocci in chains, continue to follow blood cultures -orthopedics planning to remove likely infection source of left leg osteomyelitis/septic arthritis Elevated Troponins Newly diagnosed cardiomyopathy (Chronicity of cardiomyopathy is unknown at this time) evidence of acute decompensated heart failure per chest x-ray. -as per cardiology assessment on 04/12/19 Troponins elevation likely type II event secondary to demand ischemia in the setting of tachycardia, sepsis, with increased oxygen demands. -recommendations were made to start IV heparin for 48 hours however, patient likely to get left leg amputation/debridement of infective source by orthopedics and IV heparin not started at this time -cardiology has placed 2.5 mg IV scheduled metoprolol -Restart aspirin, cilostazol, and statin therapy when patient able to tolerate oral medications. Acute kidney injury -creatinine downtrended with IV fluids. 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 He cannot verbalize. He makes some motions on sternal rub but not alert. does not appear to be in acute pain. Physical Exam Constitutional: + altered mental status ENMT: external ear and nose normal, oropharynx normal Neck: normal visual inspection Respiratory: + tachypneic Cardiovascular: Rate/Rhythm: regular rhythm and + tachycardic Gastrointestinal (Abdomen): Inspection/Auscultation: abdomen normal to inspection and normal bowel sounds Musculoskeletal: hands in mittens, right lower below knee stump, left lower extremity ulcerations in dressing Results & Data Vital Signs (Past 12 Hours) Vital Signs Temp Pulse Pulse Pulse Resp BP BP 04/12/19 14:23 36.9 C 111 H 27 H 146/75 H 04/12/19 14:00 108 H 30 H 125/82 04/12/19 13:00 114 H 29 H 136/76 04/12/19 12:00 36.9 C 121 H 26 H 147/89 H 04/12/19 11:00 113 H 31 H 128/70 04/12/19 10:00 113 H 35 H 130/72 04/12/19 09:00 118 H 29 H 104/80 04/12/19 08:00 37.2 C 112 H 38 H 119/76 04/12/19 07:00 116 H 33 H 126/82 04/12/19 06:00 113 H 20 126/68 04/12/19 04:00 36.5 C 115 H 20 125/73 04/12/19 03:00 04/12/19 02:53 36.4 C L 124 H 20 113/74 04/12/19 02:51 Pulse Ox Pulse Ox 04/12/19 14:23 97 04/12/19 14:00 97 04/12/19 13:00 91 04/12/19 12:00 96 04/12/19 11:00 100 04/12/19 10:00 96 04/12/19 09:00 94 04/12/19 08:00 93 04/12/19 07:00 96 04/12/19 06:00 94 04/12/19 04:00 96 04/12/19 03:00 92 04/12/19 02:53 04/12/19 02:51 95 (1) Sepsis Sepsis type: sepsis due to unspecified organism Qualified Code(s): A41.9 - Sepsis, unspecified organism
--- NOTE | 2019-04-12 14:51 | History & Physical Bridge Note ---
Date of Service April 12, 2019 History & Physical Bridge Note I have examined the patient, reviewed the History & Physical and in the interval since the performance of the History & Physical I have noted the following changes of clinical significance: Will require left below-knee amputation due to osteomyelitis with associated gas in the tissues, fasciitis and sepsis.
[2019-04-12] MEDS ORDERED: BUPIVACAINE 0.5 % 5 MG/1 ML MPF 30ML VIAL ONE (15:09)
--- NOTE | 2019-04-12 15:30 | Anesthesiology Consultation ---
Date of Service April 12, 2019 Assessment & Plan (1) Encounter for pre-operative examination: Chart Review Chart Review: Acceptable Risk for Surgery (Pt high risk but requires surgery) and Patient NOT seen in Pre Admission Testing Consults Requested none ASA [id number] Proposed Anesthesia Anesthesia Type: General Regional Regional Laterality: Left Site: Femoral and Popliteal Risk / Benefits Reviewed With: PT / POA / Parent / Guardian, Accepts Plan and Informed Consent Obtained Additional Notes 73 yo male admitted for changed in mental status and sepsis due to osteo. New dx cardiomyopathy and heart failure by CXR and rising troponins. Per cardiology "Troponins elevation likely type II event secondary to demand ischemia in the setting of tachycardia, sepsis, with increased oxygen demands. Patient considered high perioperative cardiovascular risk for any operations including amputation at this time." Spoke to patients daughter over the phone. She understands that patient is very high risk for procedure. She also stated that father DOES NOT want to be intubated or resuscitated. Informed daughter that pt is full code while in the operating room, but that we will attempt to avoid intubation in accordance with the patient's wishes. Daughter voiced unde rstanding and agreed with the plan. History Surgery Operation Date: 04/12/19 10:50 Proposed Procedures p Left Below Knee Amputation - Joe Porter, Height/Weight Height: 5 ft 8 in Weight: 73.6 kg Allergies Allergy/AdvReac Type Severity Reaction Status Date / Time No Known Allergies Verified 04/11/19 23:54 Medications Home Medications Medication Instructions Recorded Confirmed Last Taken alpha lipoic acid 100 mg PO BID 04/11/19 04/12/19 04/11/19 aspirin [Aspir-81] 81 mg PO DAILY 04/11/19 04/11/19 04/11/19 atorvastatin 20 mg PO DAILY 04/11/19 04/12/19 04/11/19 bimatoprost [Lumigan] 1 drp OPR HS 04/11/19 04/11/19 04/11/19 cephalexin 500 mg PO TID 04/11/19 04/11/19 04/11/19 insulin aspart U-100 [Novolog 0 unit SUBCUT DIRECTED 04/11/19 04/12/19 Flexpen U-100 Insulin] levothyroxine 125 mcg PO 5XWK 04/11/19 04/12/19 04/11/19 multivitamin 1 tab PO DAILY 04/11/19 04/11/19 04/11/19 omeprazole 20 mg PO .BIDM 30 MINS. PRIOR 04/11/19 04/11/19 04/11/19 omeprazole 20 mg PO .BIDM, 30 MIN PRIOR 04/11/19 04/12/19 04/11/19 sulfamethoxazole-trimethoprim 1 tab PO BID 04/11/19 04/11/19 04/11/19 [Bactrim DS] timolol 1 drp OPR QAM 04/11/19 04/11/19 04/11/19 tramadol 50 mg PO Q6H PRN 04/11/19 04/11/19 Unknown urea 1 applic TOPICAL BID PRN 04/11/19 04/11/19 04/11/19 cilostazol 100 mg PO BID 04/12/19 04/12/19 04/11/19 gabapentin 100 mg PO TID 04/12/19 04/12/19 04/11/19 insulin glargine [Lantus Solostar 20 unit SUBCUT DAILY 04/12/19 04/12/19 04/11/19 U-100 Insulin] Active Medications Generic Name Dose Route Start Last Admin Trade Name Freq PRN Reason Stop Dose Admin Aspirin 81 mg 04/12/19 09:00 04/12/19 09:24 Ecotrin Ectab PO 05/12/19 08:59 Not Given DAILY [facility] Atorvastatin Calcium 20 mg 04/12/19 09:00 04/12/19 09:24 Lipitor PO 05/12/19 08:59 Not Given DAILY JACQUI Cilostazol 100 mg 04/12/19 09:00 04/12/19 09:24 Pletal PO 05/12/19 08:59 Not Given BID JACQUI Gabapentin 100 mg 04/12/19 09:00 04/12/19 14:20 Neurontin PO 05/12/19 08:59 Not Given TID JACQUI Famotidine 20 mg/ Syringe 5 mls @ 2.5 mls/min 04/12/19 09:00 04/12/19 08:15 IV 05/12/19 08:59 2.5 mls/min BID JACQUI Administration Ceftriaxone Sodium 2,000 mg/ 70 mls @ 100 mls/hr 04/12/19 09:00 04/12/19 09:06 Dextrose IV 04/22/19 08:59 Infused DAILY JACQUI Infusion Protocol Vancomycin HCl 1,000 mg/ 270 mls @ 125 mls/hr 04/12/19 12:00 04/12/19 14:19 Sodium Chloride IV 04/22/19 11:59 Infused Q12H JACQUI Infusion Protocol Metronidazole 500 mg in 100 mls @ 100 mls/hr 04/12/19 09:00 04/12/19 10:47 Flagyl IV 05/24/19 08:59 Infused Q8H JACQUI Infusion Timolol Maleate 1 drops 04/12/19 09:00 04/12/19 08:15 Timoptic 0.25% Oph OPR 05/12/19 08:59 1 drops QAM JACQUI Administration NPO Date Last Intake of Fluids: 04/11/19 Time Last Intake of Fluids: 23:55 Date Last Intake of Solids: 04/11/19 Last Intake of Solids Comment: Primary RN does not know when pt ate last yesterday Past Medical History Medical History PVD (peripheral vascular disease) Sepsis Acute systolic heart failure Cardiomyopathy Elevated troponin I level Acute kidney injury superimposed on CKD NSTEMI (non-ST elevated myocardial infarction) Arthritis Cardiomyopathy Diabetes Foot infection Exercise / Class Metabolic Activity IV < 2 Limit ADL/Bedbound Past Family History Family History Other No significant family history Past Surgical History Surgical History Amputated below knee Amputated toe of left foot Social History Smoking Status: Unknown if ever smoked Hx Alcohol Use: No Hx Substance Use: No Physical Exam Vital Signs Last Vital Signs Temp 36.9 C 04/12/19 14:23 Pulse 111 H 04/12/19 14:23 Resp 27 H 04/12/19 14:23 BP 146/75 H 04/12/19 14:23 Pulse Ox 97 04/12/19 14:23 Constitutional not obese ENMT Mouth: no TMJ abnormality and oral opening not small Thyromental Distance: > or= 3.5 Finger Breadths Mallampati Class: Other (Pt obtunded and not opening mouth) Left eye prosthesis Neck Pt obtunded and unable to follow commands Respiratory + tachypneic Auscultation: + crackles and + rhonchi Cardiovascular Rate/Rhythm: regular rate and regular rhythm Heart Sounds: + murmur Neurologic moves all extremities Psychiatric Obtunded Testing Laboratory Results 04/12/19 04:25 04/12/19 04:25 PT 12.7 Seconds (9.0-12.0) H 04/12/19 13:05 INR 1.3 (0.9-1.1) H 04/12/19 13:05 APTT 39.0 Seconds (21.0-31.0) H 04/12/19 13:05 Urine Color Dark Yellow 04/12/19 Unknown Urine Appearance Cloudy (Clear) A 04/12/19 Unknown Urine pH 5.0 (4.5-7.5) 04/12/19 Unknown Ur Specific [place] 1.024 (1.000-1.030) 04/12/19 Unknown Urine Protein 1+ (Negative) H 04/12/19 Unknown Urine Glucose (UA) Negative (Negative) 04/12/19 Unknown Urine Ketones Trace (Negative) H 04/12/19 Unknown Urine Nitrite Positive (Negative) A 04/12/19 Unknown Ur Leukocyte Esterase Trace (Negative) H 04/12/19 Unknown Urine WBC (Auto) 1-5 /hpf (0-5) 04/12/19 Unknown Urine RBC (Auto) 0-4 /hpf (0-4) 04/12/19 Unknown U Hyaline Cast (Auto) 10-30 /lpf (0-5) H 04/12/19 Unknown U Epithel Cells (Auto) >30 /lpf (0-5) H 04/12/19 Unknown Urine Bacteria (Auto) 1+ (Negative) H 04/12/19 Unknown Blood Type AB Positive 04/12/19 14:08 Antibody Screen NEGATIVE 04/12/19 14:08 04/11/19 23:39 Aerobic Blood Culture - Preliminary Blood Gram positive cocci in chains 04/11/19 23:10 Gram Stain - Final Foot,Left 04/12/19 04/12/19 04/12/19 14:12 11:27 08:17 POC Glucose 181 H 167 H 156 H Electrocardiogram Date: 04/12/19 Findings: + ST @ (130) Sinus tachycardia with Fusion complexes Possible Right ventricular hypertrophy ST & T wave abnormality, consider anterolateral ischemia Abnormal ECG When compared with ECG of 05-JAN-2010 15:44, Fusion complexes are now Present ST now depressed in Anterolateral leads T wave inversion now evident in Anterior leads Echocardiogram Date: 04/12/19 EF: 25-30% LV Function: dysfunctional RWMA: + hypokinetic Valvular Disease: + no significant valvular disease
--- NOTE | 2019-04-12 16:33 | Critical Care Progress Note ---
Date of Service April 12, 2019 Assessment & Plan (1) Admitted to intensive care unit: NEURO - [facility] ICU: Positive Altered mental status: CT the head unremarkable. Presumed metabolic encephalopathy in the setting of severe infection. CARDIAC/VASCULAR - Elevated troponin. Likely demand on presentation with tachycardia and labile blood pressures. Trend troponins. The patient was evaluated by cardiology. Recommended for IV heparin as per protocol. Also the echo cardiogram was performed and that revealed EF of 25%. We will follow the recommendation from cardiology about current patient m anagement. RESPIRATORY - No known history of respiratory disorders. Supplemental O2 as needed. The patient remains very lethargic. I had a long discussion with his daughter Sharon Recio who strongly recommended that patient need to be DNR and continue with other treatment. She recommended not to do CPR, cardiac shock, intubation, ventilator. GI/NUTRITION - N.p.o. RENAL/LYTES - ALBERT on CKD. Agree with supplemental fluids. - Lucas in place - Strict I&Os. ENDO - Significant past medical history of diabetes with amputations x2. BSGs per unit protocol. ISS --> gtt per unit policy. HEME - Stable H&H. Significant leukopenia in the setting of infection. ID - SIRS from likely LLE osteomyelitis. Orthopedic was consulted and patient will be taken for left-sided BKA because of sepsis which is coming out from osteomyelitis. Received vancomycin and Rocephin in the emergency department. Changed to Zosyn. Will continue with Rocephin and vancomycin in the setting of presumed osteomye litis. The patient was also started on Flagyl for anaerobic coverage. LINES/IV ACCESS - PIVs x1 DVT PROPHYLAXIS - The patient was started on IV heparin as per cardiology protocol for non-STEMI. (2) PVD (peripheral vascular disease): (3) Sepsis: (4) Cardiomyopathy: (5) Elevated troponin I level: (6) Acute systolic heart failure: (7) Acute kidney injury superimposed on CKD: (8) NSTEMI (non-ST elevated myocardial infarction): (9) Altered mental status: (10) Osteomyelitis: Subjective History of Present Illness Attending Physician: Jamie Graff MD Patient is a 73-year-old male with a significant past medical history of diabetes with resultant right lower extremity BKA and left lower extremity partial foot amputation presented to the emergency department today with sepsis presumed from left foot infection. Patient with altered mental status at home which has worsened over the last several hours. Patient was placed on Keflex t janel for wound infection to the left foot. Presumed source of infection. Patient unable to participate in history of present illness secondary to altered mental status. The patient was seen and examined. Overall is doing very poorly. He is not responsive is very lethargic. The patient has osteomyelitis sepsis from that leg and currently is scheduled to go for BKA. Orthopedics has evaluated the patient. Patient is also had very poor risk for operative surgery and family is aware of that. I had a long discussion with the daughter Sharon Recio, will sign the papers for DO NOT RESUSCITATE. She clearly told us that what ever happens no CPR no shock no intubation no ventilator but continue with other management as recommended. The bedside nurse Michelle was present as well as the anesthesia physician who is going to anesthetize the patient during the surgery was also present for discussion. Review of Systems Review of Systems: Review of system unable to obtain secondary to his current medical condition as well as mental status. Physical Exam Physical Exam: GENERAL - 73-year-old male appearing his stated age. Attempting to pull out IVs. Also he is very lethargic at this time. He is restrained with soft mittens. SKIN -ulcerative wound noted to the base of the left foot with purulent dischar ge and foul smell. HEAD - NC/AT. EYES -glass eye in the left eye. Right eye without significant findings otherwise. NOSE - Midline and without cyanosis. MOUTH/OROPHARYNX -unable to examine his oral cavity because of his current medical condition and mental status. NECK - Neck with FROM. Supple to palpation. No nuchal rigidity. LUNGS - Chest wall symmetric without accessory muscle use, intercostals retractions, or central cyanosis. Normal vesicular breath sounds CTA B/L. No wheezes, rales, or rhonchi appreciated. CARDIAC - RRR with S1/S2. No murmur, rubs, or gallops appreciated. ABDOMEN - Abdominal contour flat without pulsations or visible masses. BS normoactive all four quadrants. No tenderness, palpable masses, hepatosplenomegaly, or ascites noted. EXTREMITIES -right lower extremity BKA. LEFT lower extremity partial foot amputation with wound as described above. Moving both extremities equally bilaterally, nonpurposeful. NEUROLOGIC -no focal neurological deficits. Unable to assess secondary to patient's mental status. The patient is very lethargic. Results & Data Vital Signs (Past 12 Hours) Vital Signs Temp Pulse Pulse Resp BP BP Pulse Ox 04/12/19 16:00 118 H 33 H 117/75 92 04/12/19 15:00 36.8 C 114 H 32 H 132/76 92 04/12/19 14:23 36.9 C 111 H 27 H 146/75 H 97 04/12/19 14:00 108 H 30 H 125/82 97 04/12/19 13:00 114 H 29 H 136/76 91 04/12/19 12:00 36.9 C 121 H 26 H 147/89 H 96 04/12/19 11:00 113 H 31 H 128/70 100 04/12/19 10:00 113 H 35 H 130/72 96 04/12/19 09:00 118 H 29 H 104/80 94 04/12/19 08:00 37.2 C 112 H 38 H 119/76 93 04/12/19 07:00 116 H 33 H 126/82 96 04/12/19 06:00 113 H 20 126/68 94 Laboratory Results 04/12/19 04:25 04/12/19 04:25 Diagnostic Findings RIGHT FOOT CT CT DOSE: 133.99 mGy.cm HISTORY: Right foot wound. eval ??osteo. Unable to MRI TECHNIQUE: Multiaxial CT images of the right foot were performed and reformatted in the sagittal and coronal plane without the use of contrast. A dose lowering technique was utilized adhering to the principles of ALARA. COMPARISON: None. FINDINGS: Motion artifact. This results in suboptimal evaluation. Evidence for prior midfoot amputation. Large skin ulceration at the distal foot measuring approximate 4.6 x 4.1 cm. Multiple erosions within the distal edge of the residual tarsal bones most pronounced at the residual cuboid bone with associated soft tissue gas. There is also a small amount of soft tissue gas within the calcaneocuboid joint and anterior calcaneus with an associated erosion. Findings likely represent osteomyelitis. The gas and erosive changes at the calcaneocuboid joint could represent a superimposed septic arthritis. There is skin thickening within the distal residual foot. Moderate osteoarthritis at the tibiotalar joint. No fracture or dislocation identified. IMPRESSION: 1. Large skin ulceration within the distal mid foot at the site of prior amputation with multiple underlying bony erosions and soft tissue gas within the residual tarsal bones. This is highly suspicious for osteomyelitis. 2. There is also gas and erosive changes at the calcaneocuboid joint which may represent a secondary septic arthritis. Electronically signed by: Kamari Neumann M.D. 04/12/2019 7:10 AM XR chest 1V portable CLINICAL HISTORY: Acute change in mental status COMPARISON STUDY: 01/05/2010 FINDINGS: There is radiographic evidence of pulmonary edema. There is no lobar consolidation. The heart is borderline enlarged. Trace pleural effusions are suspected.[ IMPRESSION: Pulmonary edema pattern. Clinical and radiographic follow-up is recommended. Electronically signed by: Beto Ridley M.D. 04/12/2019 6:53 AM Medications Administered Current Inpatient Medications Aspirin (Ecotrin Ectab) 81 mg PO DAILY JACQUI Stop: 05/12/19 08:59 Last Admin: 04/12/19 09:24 Dose: Not Given Documented by: Atorvastatin Calcium (Lipitor) 20 mg PO DAILY JACQUI Stop: 05/12/19 08:59 Last Admin: 04/12/19 09:24 Dose: Not Given Documented by: Bimatoprost (Lumigan 0.01%) 1 drops OPR HS JACQUI Stop: 05/12/19 20:59 Cilostazol (Pletal) 100 mg PO BID JACQUI Stop: 05/12/19 08:59 Last Admin: 04/12/19 09:24 Dose: Not Given Documented by: Dextrose (Dextrose 50%) 25 - 50 ml IV UD PRN; Protocol PRN Reason: Hypoglycemia Protocol Stop: 05/12/19 04:14 Gabapentin (Neurontin) 100 mg PO TID JACQUI Stop: 05/12/19 08:59 Last Admin: 04/12/19 14:20 Dose: Not Given Documented by: Glucagon (Glucagen) 1 mg SQ UD PRN; Protocol PRN Reason: Hypoglycemia Protocol Stop: 05/12/19 04:14 Glucose (Glucose 40%) 15 - 30 gm PO UD PRN; Protocol PRN Reason: Hypoglycemia Protocol Stop: 05/12/19 04:14 Glucose (Dex4 Glucose) 4 - 8 tabs PO UD PRN; Protocol PRN Reason: Hypoglycemia Protocol Stop: 05/12/19 04:14 Famotidine 20 mg/ Syringe 5 mls @ 2.5 mls/min IV BID JACQUI Stop: 05/12/19 08:59 Last Admin: 04/12/19 08:15 Dose: 2.5 mls/min Documented by: Ceftriaxone Sodium 2,000 mg/ (Dextrose) 70 mls @ 100 mls/hr IV DAILY JACQUI; Protocol Stop: 04/22/19 08:59 Last Infusion: 04/12/19 09:06 Dose: Infused Documented by: Vancomycin HCl 1,000 mg/ (Sodium Chloride) 270 mls @ 125 mls/hr IV Q12H JACQUI; Protocol Stop: 04/22/19 11:59 Last Infusion: 04/12/19 14:19 Dose: Infused Documented by: Metronidazole (Flagyl) 500 mg in 100 mls @ 100 mls/hr IV Q8H JACQUI Stop: 05/24/19 08:59 Last Infusion: 04/12/19 10:47 Dose: Infused Documented by: Heparin Sodium/Dextrose (Heparin Sodium/Dextrose) 25,000 units in 500 mls @ 25 mls/hr IV .Q20H JACQUI; Protocol Stop: 05/12/19 12:59 Insulin Aspart (Novolog Flexpen) 0 units SC Q4 JACQUI; Protocol Stop: 05/12/19 15:59 Insulin Glargine (Lantus Solostar Pen) 0 units SC QPM ONE; Protocol Stop: 04/12/19 21:01 Metoprolol Tartrate (Lopressor) 2.5 mg IV Q6 JACQUI Stop: 05/12/19 17:59 Miscellaneous (Icu Protocol For Hyperglycemia) 1 ea N/A PRN PRN; Protocol PRN Reason: Hyperglycemia Protocol Stop: 04/14/19 02:50 Miscellaneous (Carbohydrates For Hypoglycemia) 15 - 30 gm PO UD PRN PRN Reason: Hypoglycemia Treatment Stop: 05/12/19 04:14 Miscellaneous Information (Consult) 1 ea N/A UD PRN PRN Reason: Consult Stop: 05/12/19 06:59 Miscellaneous Information (Consult Glycemic Management Pharmacy) 1 ea N/A UD PRN PRN Reason: Consult Stop: 05/12/19 08:51 Timolol Maleate (Timoptic 0.25% Oph) 1 drops OPR QAM JACQUI Stop: 05/12/19 08:59 Last Admin: 04/12/19 08:15 Dose: 1 drops Documented by: PG Care Time/CCT Total # of Minutes Spent Total Time Spent with Patient: Total time spent is greater than 50% in coordination of care (as documented) at patient's floor/unit and/or counseling patient: Critical Care Time: Yes Total Critical Care Time: 30 (1) Sepsis Sepsis type: sepsis due to unspecified organism Qualified Code(s): A41.9 - Sepsis, unspecified organism (2) Cardiomyopathy Cardiomyopathy type: unspecified Qualified Code(s): I42.9 - Cardiomyopathy, unspecified (3) Altered mental status Altered mental status type: delirium Qualified Code(s): R41.0 - Disorientation, unspecified (4) Osteomyelitis Laterality: left Osteomyelitis location: foot Osteomyelitis type: acute fel[place] togenous Qualified Code(s): M86.072 - Acute hematogenous osteomyelitis, left ankle and foot
[2019-04-12] MEDS ORDERED: BACITRACIN INJ 50,000 UNIT VIAL ONE (17:03)
[2019-04-12] MEDS: INSULIN ASPART 100 UNITS/ML 3 ML PEN SC SCH ×2 (17:43→20:13)
[2019-04-12] MEDS ORDERED: ATROPINE SULFATE 0.1 MG/ML 10ML SYR IV PRN (17:51)
[2019-04-12] MEDS ORDERED: ONDANSETRON INJ 2 MG/ML 2 ML VIAL IV PRN ×2 (17:51→19:24)
[2019-04-12] MEDS ORDERED: ePHEDrine sulfate 50 MG/ML AMP IV PRN (17:51)
[2019-04-12] MEDS ORDERED: fentaNYL citrate 100 MCG/2 ML VIAL IV PRN (17:51)
[2019-04-12] MEDS ORDERED: ONDANSETRON INJ 2 MG/ML 2 ML VIAL ONE (18:08)
--- NOTE | 2019-04-12 18:21 | Post Operative Brief Note ---
Immediate Post Op Note v1 Date of Surgery April 12, 2019 Pre & Post Diagnosis Operation Date: 04/12/19 10:50 Pre-Op Diagnosis: Left foot osteomyelitis cuboid, peripheral vascular disease, fasciitis, neuropathic ulcer, severe sepsis Post-Op Diagnosis: Left foot osteomyelitis cuboid, peripheral vascular disease, fasciitis, neuropathic ulcer, severe sepsis Procedure Operation Date: 04/12/19 10:50 Actual Procedures p Left Below Knee Amputation(Left) - Joe Porter DO Surgeon Joe Porter DO [employer] Ryan Hamilton PA-C Estimated Blood Loss 20 Findings Consistent with Post-Op Diagnosis Specimens Left lower leg and foot Drains Doll Catheter (patient arrived to OR with doll present, draining yellow urine, anesthesia to monitor ) and Hemovac Drain Anesthesia Type General Regional Complications none Disposition Accompanied Patient To Recovery: Yes Disposition: Recovery Room
--- NOTE | 2019-04-12 19:10 | Anesthesiology Progress Note ---
Date of Service April 12, 2019 Anesthesia Post Procedure Vital Signs Vital Signs: Temp Pulse Pulse Pulse Resp BP BP 04/12/19 18:40 112 H 27 H 128/71 04/12/19 18:35 112 H 32 H 133/84 04/12/19 18:30 36.8 C 115 H 30 H 141/86 H 04/12/19 18:28 115 H 25 H 130/91 04/12/19 16:00 118 H 33 H 117/75 04/12/19 15:00 36.8 C 114 H 32 H 132/76 04/12/19 14:23 36.9 C 111 H 27 H 146/75 H 04/12/19 14:00 108 H 30 H 125/82 04/12/19 13:00 114 H 29 H 136/76 04/12/19 12:00 36.9 C 121 H 26 H 147/89 H 04/12/19 11:00 113 H 31 H 128/70 04/12/19 10:00 113 H 35 H 130/72 04/12/19 09:00 118 H 29 H 104/80 04/12/19 08:00 37.2 C 112 H 38 H 119/76 04/12/19 07:00 116 H 33 H 126/82 04/12/19 06:00 113 H 20 126/68 04/12/19 04:00 36.5 C 115 H 20 125/73 04/12/19 03:00 04/12/19 02:53 36.4 C L 124 H 20 113/74 04/12/19 02:51 04/12/19 01:56 121 H 20 105/63 04/12/19 01:13 128 H 20 128/85 04/12/19 00:16 123 H 22 110/85 04/11/19 23:45 120 H 22 102/82 04/11/19 22:21 37.2 C 123 H 23 118/62 Pulse Ox Pulse Ox 04/12/19 18:40 90 04/12/19 18:35 93 04/12/19 18:30 91 04/12/19 18:28 85 L 04/12/19 16:00 92 04/12/19 15:00 92 04/12/19 14:23 97 04/12/19 14:00 97 04/12/19 13:00 91 04/12/19 12:00 96 04/12/19 11:00 100 04/12/19 10:00 96 04/12/19 09:00 94 04/12/19 08:00 93 04/12/19 07:00 96 04/12/19 06:00 94 04/12/19 04:00 96 04/12/19 03:00 92 04/12/19 02:53 04/12/19 02:51 95 04/12/19 01:56 95 04/12/19 01:13 96 04/12/19 00:16 96 04/11/19 23:45 94 04/11/19 22:21 90 Transfer of Care Handoff Completed per policy Notes Mental Status: see notes below (Patient was obtunded prior to procedure - back to preoperative baseline) Nausea / Vomiting: adequately controlled Pain: adequately controlled Airway Patency, RR, SpO2: stable & adequate BP & HR: stable & adequate Hydration State: stable & adequate Anesthetic Complications: no major complications apparent Notes: Blocks appear o be functioning well.
[2019-04-12] MEDS ORDERED: NALOXONE HCL 0.4 MG/1 ML VIAL/CARP IV PRN (19:24)
[2019-04-12] MEDS ORDERED: OXYCODONE HCL IR 5 MG TAB (IMMEDIATE RELEASE) PO PRN (19:24)
[2019-04-12] MEDS ORDERED: BISACODYL 10 MG SUPP PR PRN (19:24)
[2019-04-12] MEDS ORDERED: MAGNESIUM HYDROXIDE SUSP 30 ML UDC PO PRN (19:24)
[2019-04-12] MEDS ORDERED: SODIUM CHLORIDE 0.9% 1000ML 1,000 ML IV SCH (19:24)
[2019-04-12] MEDS: METOPROLOL TARTRATE 1 MG/ML VIAL IV SCH (19:44)
[2019-04-12] MEDS: DOCUSATE SODIUM 100 MG CAP PO SCH (19:45)
--- NOTE | 2019-04-12 19:53 | XRay Report ---
XR chest 1V portable HISTORY: 73 years-old Male f/u chf post op acute shortness of breath with congestive heart failure. Follow-up exam. COMPARISON: Chest radiograph 04/11/2019 TECHNIQUE: Portable AP view of the chest FINDINGS: Exam is limited secondary to patient positioning. A right-sided PICC is noted with distal tip termina ting within the expected location of the inferior right atrium. No postprocedural pneumothorax. Small bilateral pleural effusions. Cardiomegaly with persistent pulmonary vascular congestion and intersti tial coarsening. There is no significant change from comparison. Bibasilar opacities persist. Degener ative changes of the shoulders and spine. IMPRESSION: 1. Cardiomegaly with unchanged pulmonary edema pattern. 2. Small pleural effusions with bibasilar opacities. 3. A right-sided PICC is noted with distal tip terminating in the expected location of the inferior r ight atrium. No postprocedural pneumothorax identified. The above report was generated using voice recognition software. It may contain grammatical, syntax o r spelling errors. Electronically signed by: Gabe Irizarry M.D. 04/12/2019 7:52 PM
[2019-04-12] MEDS: BIMATOPROST 0.01% OP SOLN 2.5 ML BTL OPR SCH (20:15)
[2019-04-12] MEDS: HYDROmorphone INJ 0.5 MG/0.5 ML SYR IV PRN (20:19)
[2019-04-12] MEDS ORDERED: INSULIN GLARGINE SOLOSTAR 100 UNITS/ML 3 ML PEN SC ONE (21:00)
[2019-04-12] MEDS: ACETAMINOPHEN 500 MG TAB PO SCH (21:32)
[2019-04-13] MEDS: METOPROLOL TARTRATE 1 MG/ML VIAL IV SCH ×5 (00:03→20:22)
[2019-04-13] MEDS: VANCOMYCIN HCL 1,000 MG in SODIUM CHLORIDE 0.9% 250 ML IV SCH ×2 (00:05→12:10)
--- NOTE | 2019-04-13 00:22 | Consultation Report ---
DATE OF CONSULTATION: 04/12/2019 HISTORY OF PRESENT ILLNESS: This is a 73-year-old gentleman seen at the request of Dr. Lambert for left foot osteomyelitis and ulceration. 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 The patient had complaints in his left foot, which really he did not feel any good. He walks with the help of crutches. His appetite had been decreased and he had an ulceration in the plantar aspect of his left foot for some time and it was draining worse on the day of admission. He was feeling weak and dizzy, so he went to see his family doctor and was prescribed antibiotics, Keflex and Bactrim. When the patient's daughter went to wake him up at 6:30 p.m., she saw him to get confused and agitated, difficult to check his blood sugars, so he was brought to the Emergency Department. He is noted to be tachycardic. White count of 35,000 and lactic acid was 6.18 with troponin of 1.5. Procalcitonin was 4.23. He was given a liter of fluid and given supportive care. The patient was admitted to the hospital for treatment for sepsis and orthopedics was consulted. Upon examination, the patient was difficult to arouse and with unintelligible speech. Therefore, history is per the discussion with the patient's daughter and from the chart. PAST MEDICAL HISTORY: Peripheral vascular disease, type 1 diabetes, hyperlipidemia, hypothyroidism, reflux esophagitis, left eye blindness, contractures of muscles of both hands. PAST SURGICAL HISTORY: Right below-knee amputation, left transmetatarsal amputation, angioplasty of left lower extremity with femoral-popliteal bypass. ALLERGIES: No known drug allergies. MEDICATIONS: Please note the significant list in the medical record. SOCIAL HISTORY: He is . He lives with his daughter. He is a former smoker, smoked 3 packs a day for 30 years. No drug use. He is retired. PHYSICAL EXAMINATION: GENERAL: This is a 73-year-old gentleman who is lying supine in his hospital bed in the intensive care unit. He is breathing on his own; however, does not arouse with conversation or with sternal rub. He does attempt to awaken; however, does not respond with any intelligible speech, some gibberish. EXTREMITIES: Examination of the left lower extremity demonstrates previous higher transmetatarsal amputation with open necrotic wound over the distal plantar aspect of the cuboid measuring approximately 3.5 cm in diameter with obvious dark and dusky necrotic-appearing tissue. There is foul odor and purulent discharge to the open aspect of the plantar lateral aspect of the cuboid, which is directly palpable with finger palpation. There is some grayish green fibrinous exudate throughout. It is obviously necrotic. There is redness with streaking in the foot. With compression of the foot, purulence drains from the ulcer and with streaking going proximally, there are some ropes and cords in the soft tissues. Pulses are not palpable; however, the foot is moderately warm. Cap refill is sluggish. He has excoriations and chronic venous stasis changes of the left lower extremity. DATA: Laboratories and radiographic studies were reviewed indicating laboratory confirmed sepsis. CT scan demonstrated gas in the tissues with bony destruction of the distal calcaneus and the cuboid. Status post transmetatarsal amputation. IMPRESSION: 1. Sepsis. 2. Osteomyelitis of the cuboid and calcaneus with gas and free air in the soft tissues of the left foot. 3. Cellulitis, osteomyelitis, peripheral vascular disease, diabetes mellitus. RECOMMENDATIONS: Despite the patient's poor medical health and poor overall condition, he will need to proceed with below-knee amputation as there is the source of his sepsis, and the sooner the below-knee amputation is completed, the sooner that we can treat his overall condition effectively. I discussed this with the patient's daughter. She recognizes the concerning position we are in; however, agrees to proceed with left below-knee amputation. This was witnessed for verbal consent by telephone with the nurse, Tmaia, present for the discussion. The patient will be scheduled for the OR as soon as possible today for left below-knee amputation. Thank you for the opportunity to consult in the care of this patient.
[2019-04-13] MEDS: INSULIN ASPART 100 UNITS/ML 3 ML PEN SC SCH ×7 (00:34→23:59)
[2019-04-13] MEDS: metroNIDAZOLE 500 MG/100 ML BAG IV SCH ×2 (00:42→08:14)
--- NOTE | 2019-04-13 04:28 | Operative Report ---
DATE OF OPERATION: 04/12/2019 DATE OF PROCEDURE: 04/12/2019 PREOPERATIVE DIAGNOSES: 1. Left foot osteomyelitis of the cuboid. 2. Fasciitis. 3. Peripheral vascular disease. 4. Severe sepsis. POSTOPERATIVE DIAGNOSES: 1. Left foot osteomyelitis of the cuboid. 2. Fasciitis. 3. Peripheral vascular disease. 4. Severe sepsis. PROCEDURE: Left below knee amputation. SURGEON: Joe Porter DO CARDIOTHORACIC PHYSIOTHERAPIST: EDMUND Sheffield ANESTHESIA: General regional. SPECIMENS: Left lower leg and foot. DRAINS: Hemovac x1. COMPLICATIONS: None. BLOOD LOSS: 20 mL. PERTINENT HISTORY: This is a 73-year-old gentleman who presented to [facility] with severe sepsis. He had a large ulceration of his residual left lower extremity. He had a prior very proximal transmetatarsal amputation of the left foot performed by another provider. The patient presented with a large ulceration on the lateral plantar aspect of the foot, swelling, redness, streaking and sepsis. He had mental status change, met sepsis criteria and was admitted to the hospital on IV antibiotics and aggressive resuscitation. After further diagnostic testing, he is noted to have gas in the tissues of the fasciitis and osteomyelitis of the left foot noted as is source for sepsis. The patient was then scheduled for left below knee amputation deeming him high risk; however, to proceed as necessary. The limb was causing sepsis. The patient was then scheduled for surgery as indicated. All potential risks, benefits, complications, alternatives, rehab, potential for incomplete relief of symptoms, need for further surgery, DVT, PE, , persistent pain, swelling, scarring, weakness, neurovascular injury, wound complications, bone fracture, need for further amputation were discussed with the patient and his family. The patient was obtunded and therefore all decision making was performed by his next of kin and power of employment law attorney. DESCRIPTION OF PROCEDURE: The patient was given a nerve block in the preop holding area. However, secondary nerve block was ineffective and unobtainable due to the patient's poor vasculature. Therefore, the anesthesia department decided to anesthetize the patient. He was anesthetized and airway was secured. The patient was then placed supine on the operating table. The tourniquet was applied high on left thigh over cast padding. Left lower extremity was then sterilely prepped and draped in usual fashion, elevated and tourniquet inflated to 350 mmHg. There was no exsanguination due to the infection of the lower extremity. Next, the left foot was sealed off with impermeable drape and Coban. The left lower extremity was then sterilely prepped and draped in usual fashion. The left lower extremity was then placed on a bump and level of resection was determined approximately 10 cm distal to the tibial tubercle. Therefore, skin incision was made approximately 11 cm distal to the tibial tubercle transversely across the anterior aspect of the distal tibia. With a 10 blade scalpel, the incision was deepened through subcutaneous tissue. Meticulous hemostasis was achieved with electrocautery. Full thickness skin flaps were developed. The incision was then carried medially and laterally and then swept posteriorly with a well fashioned flap with a 10 blade scalpel. Electrocautery was used to cauterize any bleeding vessels and then the anterior compartment was entered and transected with the electrocautery. Neurovascular bundle was then cross clamped and tied with a 2-0 silk. Next, the Hohmann retractors were placed posterior to the tibia, exposing the tibia after incision of the periosteum. The tibia was resected approximately 1 cm proximal to the skin incision transversely with a sagittal saw. This was then bevelled anteriorly to prevent any soft tissue impingement or ulceration of the anterior distal tip of the tibia. This was then smoothed with a bone rasp and irrigation. Next, the fibula was then skeletonized laterally, careful dissection with electrocautery. Hohmann was replaced circumferentially around the fibula and then an oblique cut was made with a sagittal saw, approximately 1 cm proximal to the level of the tibial cut. Next, this was rasped with a bone rasp and irrigated with sterile normal saline. Next, careful dissection was performed with Metzenbaum scissors. The neurovascular bundles were identified, crossclamped and then tied with #2 silk. The tibial nerve was identified and crossclamped, tied with #2 silk and then bovied distally and allowed to retract within the stump. Next, the medial and lateral incisions were carried distally through the peroneals and through the gastrocsoleus and the gastrocsoleus fascia and the Achilles. Next, the lower foot and leg was then from the residual limb and then passed off as specimen. Next, the limb was assessed for bleeders which were then cauterized or tied off with a 2-0 silk. Care was taken to assure that the calcified arteries had been crossclamped, burned and the lumens were crushed with a hemostat to avoid late bleeding or hematoma formation. Next, the wound was copiously irrigated with pulsatile lavage, approximately 2.5 liters with bacitracin and no significant bleeding was noted. Bone wax was placed into the tibial canal to prevent leakage and hematoma. Next, the flap was then bevelled slightly with a 10 blade scalpel and then the gastrocsoleus fascia was then sewn into the anterior distal periosteum of the tibia using buried [id number] #1 Vicryl sutures. Next, the fascia was closed, anteriorly, medially and laterally with #1 Vicryl and a 10-Syriac single lumen Hemovac drain was placed exiting anterolaterally. Next, the dermis was closed using buried interrupted 2-0 Vicryl and the skin was closed using interrupted 3-0 nylon sutures. No dog ears were noted and the flap was viable, pink and warm. Next, a sterile compressive dressing was applied after injection with 0.5% Marcaine plain around the incision site. This was then followed by application of an Peter wrap. The tourniquet was released. The patient was awakened and taken to recovery in stable condition Put in a sterile compressive dressing consisting of Xeroform gauze, sterile 4 x 4's, cast padding, ABDs, x2 and an Peter wrap was applied. The tourniquet was released. The patient was awakened and taken to recovery in stable condition. I attest to the content of the Intraoperative Record and any orders documented therein. Any exception s are noted below.
[2019-04-13 04:56] LABS: Hematocrit (blood only) 31.5 % (42-52); Hemoglobin 10.8 g/dL (14.0-18.0); Mean Corpuscular Hgb Conc 34.3 g/dL (32-36); Mean Corpuscular Volume 85.8 fL (80-100); Mean Platelet Volume 10.1 fL (7.4-10.4); Platelet Count 123 K/uL (130-400); RDW Coefficient of Variation 13.9 % (11.5-14.5); Red Blood Count 3.67 M/uL (4.7-6.1); White Blood Count 31.33 K/uL (4.8-10.8)
[2019-04-13 05:22] LABS: Basophils # (auto) 0.02 K/uL (0-0.2); Basophils % (auto) 0.1 %; Immature Granulocytes # (auto) 0.45 K/uL (0.00-0.02); Immature Granulocytes % (auto) 1.4 %; Lymphocytes # (auto) 0.81 K/uL (1.2-3.4); Lymphocytes % (auto) 2.6 %; Monocytes # (auto) 1.91 K/uL (0.11-0.59); Monocytes % (auto) 6.1 %; Neutrophils # (auto) 28.14 K/uL (1.4-6.5); Neutrophils % (auto) 89.8 %
[2019-04-13 05:25] LABS: Albumin Level 1.8 gm/dl (3.4-5.0); BUN Creatinine Ratio 35.1 (10-20); Bilirubin Direct 0.3 mg/dl (0-0.2); Bilirubin,Total 0.5 mg/dl (0.2-1); Calcium 7.8 mg/dl (8.5-10.1); Creatinine Clr Calc Pharmacy 82.3 ml/min; Est GFR (Non-African American) 89.7; Magnesium 2.4 mg/dl (1.8-2.4); Phosphorus 4.3 mg/dl (2.5-4.9); Potassium 4.6 mmol/L (3.5-5.1); Total Protein 5.7 gm/dl (6.4-8.2)
[2019-04-13 05:36] LABS: Troponin I 2.29 ng/ml (0-0.045)
[2019-04-13] MEDS: ACETAMINOPHEN 500 MG TAB PO SCH ×2 (06:32→14:30)
--- NOTE | 2019-04-13 07:12 | XRay Report ---
SINGLE VIEW CHEST CLINICAL HISTORY: Follow-up pulmonary edema. FINDINGS: An AP, portable, upright chest radiograph is compared to study dated 04/12/2019. The examina tion is degraded by portable technique and patient rotation. A right PICC line is unchanged in positi on. The tip of the catheter projects over the right atrium. The heart is enlarged noting atherosclero tic calcification of the thoracic aorta. There is pulmonary vascular congestion and interstitial jeremy a. There are layering pleural effusions with bibasilar consolidation. No pneumothorax is seen. The sk eletal structures are osteopenic. The bony thorax is grossly intact. An IV catheter is noted in the l eft neck. IMPRESSION: 1. Cardiomegaly with evidence of congestive failure and interstitial edema. This has not significantl y changed from yesterday. 2. Layering pleural effusions with bibasilar consolidation. Electronically signed by: Jay Paiz M.D. 04/13/2019 7:11 AM
[2019-04-13] MEDS: FAMOTIDINE 20 MG in SYRINGE 3 ML IV SCH ×2 (08:14→20:22)
[2019-04-13] MEDS: DOCUSATE SODIUM 100 MG CAP PO SCH (08:14)
[2019-04-13] MEDS: cefTRIAXone SODIUM 2,000 MG in DEXTROSE 5% 50 ML IV SCH (08:14)
[2019-04-13] MEDS: GABAPENTIN 100 MG CAP PO SCH ×2 (08:15→14:30)
[2019-04-13] MEDS: ASPIRIN 81 MG ECTAB PO SCH (08:15)
[2019-04-13] MEDS: ATORVASTATIN 20 MG TAB PO SCH (08:15)
[2019-04-13] MEDS: TIMOLOL MALEATE 0.25% OP SOLN 5 ML BTL OPR SCH (08:15)
[2019-04-13] MEDS: CILOSTAZOL 100 MG TAB PO SCH (08:15)
[2019-04-13] MEDS: HYDROmorphone INJ 0.5 MG/0.5 ML SYR IV PRN (08:22)
--- NOTE | 2019-04-13 08:22 | Orthopedic Progress Note ---
Date of Service April 13, 2019 Assessment & Plan (1) Osteomyelitis of left foot: POD #1 s/p left BKA Dressing kept in place today. Will plan for dressing change tomorrow. Hemovac kept in place. D/C planning--uncertain at this time. Medicine to monitor patient's overall status. Subjective No hx from the patient today. Nursing states the patient is a little more awake today. Physical Exam Constitutional: Improved vitals today. Patient is a little more awake today but still obtunded. Unable to answer questions today. Musculoskeletal: LLE: Dressing is clean, dry, intact at the BKA site. Hemovac in place and draining. No drainage results seen in the chart to this point. Results & Data Vital Signs (Past 12 Hours) Vital Signs Temp Pulse Resp BP Pulse Ox 04/13/19 06:33 103 H 115/66 04/13/19 06:20 102 H 20 96 04/13/19 06:10 101 H 20 97 04/13/19 06:00 102 H 22 115/66 94 04/13/19 05:50 101 H 22 95 04/13/19 05:40 100 H 21 97 04/13/19 05:30 100 H 19 98 04/13/19 05:20 99 H 20 98 04/13/19 05:10 102 H 20 96 04/13/19 05:00 105 H 16 122/72 98 04/13/19 04:50 105 H 14 04/13/19 04:40 99 H 23 97 04/13/19 04:30 98 H 20 96 04/13/19 04:20 36.6 C 98 H 22 96 04/13/19 04:10 100 H 21 96 04/13/19 04:00 98 H 20 121/82 96 04/13/19 03:50 98 H 20 96 04/13/19 03:40 98 H 23 97 04/13/19 03:30 96 H 20 96 04/13/19 03:20 97 H 25 H 96 04/13/19 03:10 96 H 21 94 04/13/19 03:00 95 H 19 140/68 96 04/13/19 02:50 96 H 19 97 04/13/19 02:40 95 H 20 97 04/13/19 02:30 94 H 13 97 04/13/19 02:20 95 H 23 96 04/13/19 02:10 94 H 21 97 04/13/19 02:00 94 H 22 112/64 96 04/13/19 01:50 94 H 19 96 04/13/19 01:40 95 H 23 95 04/13/19 01:30 95 H 22 96 04/13/19 01:20 93 H 20 96 04/13/19 01:10 93 H 21 96 04/13/19 01:00 94 H 21 124/70 96 04/13/19 00:50 92 H 22 96 04/13/19 00:40 91 H 21 96 04/13/19 00:30 90 23 94 04/13/19 00:20 88 21 94 04/13/19 00:10 91 H 21 92 04/13/19 00:03 102 H 125/75 04/13/19 00:00 36.5 C 102 H 21 125/75 93 04/12/19 23:50 101 H 22 92 04/12/19 23:40 104 H 21 92 04/12/19 23:30 102 H 23 92 04/12/19 23:20 102 H 23 92 04/12/19 23:10 102 H 23 91 04/12/19 23:00 103 H 23 112/72 92 04/12/19 22:50 103 H 24 92 04/12/19 22:40 103 H 23 93 04/12/19 22:30 102 H 24 91 04/12/19 22:20 101 H 25 H 93 04/12/19 22:10 102 H 23 94 04/12/19 22:00 102 H 23 132/74 94 04/12/19 21:50 102 H 24 95 04/12/19 21:40 100 H 25 H 97 04/12/19 21:30 101 H 28 H 94 04/12/19 21:20 101 H 26 H 93 04/12/19 21:10 101 H 27 H 91 04/12/19 21:00 100 H 24 131/72 95 04/12/19 20:50 96 H 26 H 93 04/12/19 20:40 95 H 20 95 04/12/19 20:35 93 H 12 97/60 L 90 04/12/19 20:30 98 H 12 126/82 94 04/12/19 20:25 97 H 22 114/78 95 04/12/19 20:20 94 H 29 H 141/69 H 94
--- NOTE | 2019-04-13 08:45 | Critical Care Progress Note ---
Date of Service April 13, 2019 Assessment & Plan (1) Admitted to intensive care unit: [facility] - [facility] ICU: Positive Altered mental status: CT the head unremarkable. Presumed metabolic encephalopathy in the setting of severe infection. Seems to be improving. CARDIAC/VASCULAR - Elevated troponin. Likely demand on presentation with tachycardia and labile blood pressures. The patient was evaluated by cardiology. IV heparin as per protocol was started. Also the echo cardiogram was performed and that revealed EF of 25%. We will follow the recommendation from cardiology about current patient management. RESPIRATORY - No known history of respiratory disorders. Supplemental O2 as needed. The patient remains very lethargic. I had a long discussion with his daughter Sharon Recio who strongly recommended that patient need to be DNR and continue with other treatment. She recommended not to do CPR, cardiac shock, intubation, ventilator. The patient is DNR but continue other management. GI/NUTRITION - N.p.o. RENAL/LYTES - ALBERT on CKD. Agree with supplemental fluids. - Lucas in place - Strict I&Os. ENDO - Significant past medical history of diabetes with amputations x2. BSGs per unit protocol. ISS --> gtt per unit policy. HEME - Stable H&H. Elevated white count to 31,000 with seems to be coming down from the admission which was 35.38. It is all secondary to the ongoing sepsis/infection. ID - SIRS from likely LLE osteomyelitis. The orthopedics were consulted and patient is status post left BKA for osteomyelitis. Received vancomycin and Rocephin in the emergency department. Will continue with Rocephin and vancomycin in the setting of presumed osteomyelitis. The patient was also started on Flagyl for anaerobic coverage. Overall seems to be improving and hemodynamically stable. LINES/IV ACCESS - (2) Osteomyelitis: (3) Elevated troponin: (4) Osteomyelitis of left foot: (5) Cardiomyopathy: (6) Acute kidney injury superimposed on CKD: (7) NSTEMI (non-ST elevated myocardial infarction): (8) S/P BKA (below knee amputation): Subjective The patient was seen and examined. Patient is postoperatively he went for left BKA yesterday. Overall seems to be stable at this time hemodynamically. He is more alert more awake tries to answer some questions and he is hard of hearing. Unable to obtain full history at this time. He denies having any chest pain or shortness of breath. His breathing comfortably and is oxygenating around 92 to 93%. Review of Systems Review of Systems: Review of system unable to obtain secondary to his current medical condition and mental status. Physical Exam Physical Exam: GENERAL - 73-year-old male appearing his stated age. The patient is more awake and tries to answer questions. SKIN -left BKA yesterday. HEAD - NC/AT. EYES -glass eye in the left eye. Right eye without significant findings otherwise. NOSE - Midline and without cyanosis. MOUTH/OROPHARYNX -unable to examine his oral cavity because of his current medical condition and mental status. NECK - Neck with FROM. Supple to palpation. No nuchal rigidity. LUNGS - Chest wall symmetric without accessory muscle use, intercostals retractions. Normal vesicular breath sounds CTA B/L. No wheezes, rales, or rhonchi appreciated. CARDIAC - RRR with S1/S2. No murmur, rubs, or gallops appreciated. ABDOMEN - Abdominal contour flat without pulsations or visible masses. BS normoactive all four quadrants. No tenderness, palpable masses, hepatosplenomegaly, or ascites noted. EXTREMITIES -right lower extremity BKA. LEFT lower extremity BKA since yesterday. Moving both extremities equally bilaterally, nonpurposeful. NEUROLOGIC -no focal neurological deficits. Unable to assess secondary to patient's mental status. Results & Data Vital Signs (Past 12 Hours) Vital Signs Temp Pulse Resp BP Pulse Ox 04/13/19 06:33 103 H 115/66 04/13/19 06:20 102 H 20 96 04/13/19 06:10 101 H 20 97 04/13/19 06:00 102 H 22 115/66 94 04/13/19 05:50 101 H 22 95 04/13/19 05:40 100 H 21 97 04/13/19 05:30 100 H 19 98 04/13/19 05:20 99 H 20 98 04/13/19 05:10 102 H 20 96 04/13/19 05:00 105 H 16 122/72 98 04/13/19 04:50 105 H 14 04/13/19 04:40 99 H 23 97 04/13/19 04:30 98 H 20 96 04/13/19 04:20 36.6 C 98 H 22 96 04/13/19 04:10 100 H 21 96 04/13/19 04:00 98 H 20 121/82 96 04/13/19 03:50 98 H 20 96 04/13/19 03:40 98 H 23 97 04/13/19 03:30 96 H 20 96 04/13/19 03:20 97 H 25 H 96 04/13/19 03:10 96 H 21 94 04/13/19 03:00 95 H 19 140/68 96 04/13/19 02:50 96 H 19 97 04/13/19 02:40 95 H 20 97 04/13/19 02:30 94 H 13 97 04/13/19 02:20 95 H 23 96 04/13/19 02:10 94 H 21 97 04/13/19 02:00 94 H 22 112/64 96 04/13/19 01:50 94 H 19 96 04/13/19 01:40 95 H 23 95 04/13/19 01:30 95 H 22 96 04/13/19 01:20 93 H 20 96 04/13/19 01:10 93 H 21 96 04/13/19 01:00 94 H 21 124/70 96 04/13/19 00:50 92 H 22 96 04/13/19 00:40 91 H 21 96 04/13/19 00:30 90 23 94 04/13/19 00:20 88 21 94 04/13/19 00:10 91 H 21 92 04/13/19 00:03 102 H 125/75 04/13/19 00:00 36.5 C 102 H 21 125/75 93 04/12/19 23:50 101 H 22 92 04/12/19 23:40 104 H 21 92 04/12/19 23:30 102 H 23 92 04/12/19 23:20 102 H 23 92 04/12/19 23:10 102 H 23 91 04/12/19 23:00 103 H 23 112/72 92 04/12/19 22:50 103 H 24 92 04/12/19 22:40 103 H 23 93 04/12/19 22:30 102 H 24 91 04/12/19 22:20 101 H 25 H 93 04/12/19 22:10 102 H 23 94 04/12/19 22:00 102 H 23 132/74 94 04/12/19 21:50 102 H 24 95 04/12/19 21:40 100 H 25 H 97 04/12/19 21:30 101 H 28 H 94 04/12/19 21:20 101 H 26 H 93 04/12/19 21:10 101 H 27 H 91 04/12/19 21:00 100 H 24 131/72 95 04/12/19 20:50 96 H 26 H 93 Laboratory Results Abnormal lab results 04/12/19 04/12/19 04/12/19 Range/Units 10:53 11:27 13:05 WBC (4.8-10.8) K/uL RBC (4.7-6.1) M/uL Hgb (14.0-18.0) g/dL Hct (42-52) % Plt Count (130-400) K/uL Immature Gran # (Auto) (0.00-0.02) K/uL Neut # (Auto) (1.4-6.5) K/uL Lymph # (Auto) (1.2-3.4) K/uL Curry # (Auto) (0.11-0.59) K/uL PT 12.7 H (9.0-12.0) Seconds INR 1.3 H (0.9-1.1) APTT 39.0 H (21.0-31.0) Seconds Sodium (136-145) mmol/L BUN (7-18) mg/dl BUN/Creatinine Ratio (10-20) Glucose (70-99) mg/dl POC Glucose 167 H (70-99) Calcium (8.5-10.1) mg/dl Direct Bilirubin (0-0.2) mg/dl Alkaline Phosphatase (45-117) U/L Troponin I 3.000 H* (0-0.045) ng/ml Total Protein (6.4-8.2) gm/dl Albumin (3.4-5.0) gm/dl Procalcitonin (0-0.5) ng/ml 04/12/19 04/12/19 04/12/19 Range/Units 14:12 18:34 18:48 WBC (4.8-10.8) K/uL RBC (4.7-6.1) M/uL Hgb (14.0-18.0) g/dL Hct (42-52) % Plt Count (130-400) K/uL Immature Gran # (Auto) (0.00-0.02) K/uL Neut # (Auto) (1.4-6.5) K/uL Lymph # (Auto) (1.2-3.4) K/uL Curry # (Auto) (0.11-0.59) K/uL PT (9.0-12.0) Seconds INR (0.9-1.1) APTT (21.0-31.0) Seconds Sodium (136-145) mmol/L BUN (7-18) mg/dl BUN/Creatinine Ratio (10-20) Glucose (70-99) mg/dl POC Glucose 181 H 158 H (70-99) Calcium (8.5-10.1) mg/dl Direct Bilirubin (0-0.2) mg/dl Alkaline Phosphatase (45-117) U/L Troponin I 3.330 H* (0-0.045) ng/ml Total Protein (6.4-8.2) gm/dl Albumin (3.4-5.0) gm/dl Procalcitonin (0-0.5) ng/ml 04/12/19 04/13/19 04/13/19 Range/Units 20:05 00:32 04:08 WBC 31.33 H* (4.8-10.8) K/uL RBC 3.67 L (4.7-6.1) M/uL Hgb 10.8 L (14.0-18.0) g/dL Hct 31.5 L (42-52) % Plt Count 123 L (130-400) K/uL Immature Gran # (Auto) 0.45 H (0.00-0.02) K/uL Neut # (Auto) 28.14 H (1.4-6.5) K/uL Lymph # (Auto) 0.81 L (1.2-3.4) K/uL Curry # (Auto) 1.91 H (0.11-0.59) K/uL PT (9.0-12.0) Seconds INR (0.9-1.1) APTT (21.0-31.0) Seconds Sodium (136-145) mmol/L BUN (7-18) mg/dl BUN/Creatinine Ratio (10-20) Glucose (70-99) mg/dl POC Glucose 135 H 141 H (70-99) Calcium (8.5-10.1) mg/dl Direct Bilirubin (0-0.2) mg/dl Alkaline Phosphatase (45-117) U/L Troponin I (0-0.045) ng/ml Total Protein (6.4-8.2) gm/dl Albumin (3.4-5.0) gm/dl Procalcitonin (0-0.5) ng/ml 04/13/19 04/13/19 04/13/19 Range/Units 04:08 04:08 04:12 WBC (4.8-10.8) K/uL RBC (4.7-6.1) M/uL Hgb (14.0-18.0) g/dL Hct (42-52) % Plt Count (130-400) K/uL Immature Gran # (Auto) (0.00-0.02) K/uL Neut # (Auto) (1.4-6.5) K/uL Lymph # (Auto) (1.2-3.4) K/uL Curry # (Auto) (0.11-0.59) K/uL PT (9.0-12.0) Seconds INR (0.9-1.1) APTT (21.0-31.0) Seconds Sodium 134 L (136-145) mmol/L BUN 26 H (7-18) mg/dl BUN/Creatinine Ratio 35.1 H (10-20) Glucose 196 H (70-99) mg/dl POC Glucose 126 H (70-99) Calcium 7.8 L (8.5-10.1) mg/dl Direct Bilirubin 0.3 H (0-0.2) mg/dl Alkaline Phosphatase 353 H (45-117) U/L Troponin I 2.290 H* (0-0.045) ng/ml Total Protein 5.7 L (6.4-8.2) gm/dl Albumin 1.8 L (3.4-5.0) gm/dl Procalcitonin 2.49 H (0-0.5) ng/ml 04/13/19 Range/Units 08:18 WBC (4.8-10.8) K/uL RBC (4.7-6.1) M/uL Hgb (14.0-18.0) g/dL Hct (42-52) % Plt Count (130-400) K/uL Immature Gran # (Auto) (0.00-0.02) K/uL Neut # (Auto) (1.4-6.5) K/uL Lymph # (Auto) (1.2-3.4) K/uL Curry # (Auto) (0.11-0.59) K/uL PT (9.0-12.0) Seconds INR (0.9-1.1) APTT (21.0-31.0) Seconds Sodium (136-145) mmol/L BUN (7-18) mg/dl BUN/Creatinine Ratio (10-20) Glucose (70-99) mg/dl POC Glucose 185 H (70-99) Calcium (8.5-10.1) mg/dl Direct Bilirubin (0-0.2) mg/dl Alkaline Phosphatase (45-117) U/L Troponin I (0-0.045) ng/ml Total Protein (6.4-8.2) gm/dl Albumin (3.4-5.0) gm/dl Procalcitonin (0-0.5) ng/ml Diagnostic Findings SINGLE VIEW CHEST CLINICAL HISTORY: Follow-up pulmonary edema. FINDINGS: An AP, portable, upright chest radiograph is compared to study dated 04/12/2019. The examination is degraded by portable technique and patient rotation. A right PICC line is unchanged in position. The tip of the catheter projects over the right atrium. The heart is enlarged noting atherosclerotic calcification of the thoracic aorta. There is pulmonary vascular congestion and interstitial edema. There are layering pleural effusions with bibasilar consolidation. No pneumothorax is seen. The skeletal structures are osteopenic. The bony thorax is grossly intact. An IV catheter is noted in the left neck. IMPRESSION: 1. Cardiomegaly with evidence of congestive failure and interstitial edema. This has not significantly changed from yesterday. 2. Layering pleural effusions with bibasilar consolidation. Electronically signed by: Jay Paiz M.D. 04/13/2019 7:11 AM Medications Administered Current Inpatient Medications Acetaminophen (Tylenol) 1,000 mg PO Q8 JACQUI Stop: 05/12/19 21:59 Last Admin: 04/13/19 06:32 Dose: Not Given Documented by: Aspirin (Ecotrin Ectab) 81 mg PO DAILY [facility] Stop: 05/12/19 08:59 Last Admin: 04/13/19 08:15 Dose: Not Given Documented by: Atorvastatin Calcium (Lipitor) 20 mg PO DAILY [facility] Stop: 05/12/19 08:59 Last Admin: 04/13/19 08:15 Dose: Not Given Documented by: Bimatoprost (Lumigan 0.01%) 1 drops OPR HS [facility] Stop: 05/12/19 20:59 Last Admin: 04/12/19 20:15 Dose: 1 drops Documented by: Bisacodyl (Dulcolax) 10 mg RI DAILY PRN PRN Reason: Constipation Stop: 05/12/19 19:23 Cilostazol (Pletal) 100 mg PO BID [facility] Stop: 05/12/19 08:59 Last Admin: 04/13/19 08:15 Dose: Not Given Documented by: Dextrose (Dextrose 50%) 25 - 50 ml IV UD PRN; Protocol PRN Reason: Hypoglycemia Protocol Stop: 05/12/19 04:14 Docusate Sodium (Colace) 100 mg PO BID [facility] Stop: 05/12/19 20:59 Last Admin: 04/13/19 08:14 Dose: Not Given Documented by: Gabapentin (Neurontin) 100 mg PO TID [facility] Stop: 05/12/19 08:59 Last Admin: 04/13/19 08:15 Dose: Not Given Documented by: Glucagon (Glucagen) 1 mg SQ UD PRN; Protocol PRN Reason: Hypoglycemia Protocol Stop: 05/12/19 04:14 Glucose (Glucose 40%) 15 - 30 gm PO UD PRN; Protocol PRN Reason: Hypoglycemia Protocol Stop: 05/12/19 04:14 Glucose (Dex4 Glucose) 4 - 8 tabs PO UD PRN; Protocol PRN Reason: Hypoglycemia Protocol Stop: 05/12/19 04:14 Hydromorphone HCl (Dilaudid) 0.25 mg IV Q4H PRN PRN Reason: Pain Stop: 04/26/19 19:23 Last Admin: 04/13/19 08:22 Dose: 0.25 mg Documented by: Famotidine 20 mg/ Syringe 5 mls @ 2.5 mls/min IV BID [facility] Stop: 05/12/19 08:59 Last Admin: 04/13/19 08:14 Dose: 2.5 mls/min Documented by: Ceftriaxone Sodium 2,000 mg/ (Dextrose) 70 mls @ 100 mls/hr IV DAILY JACQUI; Protocol Stop: 04/22/19 08:59 Last Admin: 04/13/19 08:14 Dose: 100 mls/hr Documented by: Vancomycin HCl 1,000 mg/ (Sodium Chloride) 270 mls @ 125 mls/hr IV Q12H JACQUI; Protocol Stop: 04/22/19 11:59 Last Infusion: 04/13/19 01:54 Dose: Infused Documented by: Metronidazole (Flagyl) 500 mg in 100 mls @ 100 mls/hr IV Q8H JACQUI Stop: 05/24/19 08:59 Last Admin: 04/13/19 08:14 Dose: 100 mls/hr Documented by: Furosemide 20 mg/ Syringe 2 mls @ 4 mls/min IV ONE ONE Stop: 04/13/19 08:48 Insulin Aspart (Novolog Flexpen) 0 units SC Q4 JACQUI; Protocol Stop: 05/12/19 15:59 Last Admin: 04/13/19 08:20 Dose: 1 units Documented by: Insulin Glargine (Lantus Solostar Pen) 15 units SC DAILY [facility] Stop: 05/13/19 08:59 Magnesium Hydroxide (Milk Of Magnesia) 30 ml PO Q6H PRN PRN Reason: Constipation Stop: 05/12/19 19:23 Metoprolol Tartrate (Lopressor) 2.5 mg IV Q6 JACQUI Stop: 05/12/19 17:59 Last Admin: 04/13/19 06:33 Dose: 2.5 mg Documented by: Miscellaneous (Icu Protocol For Hyperglycemia) 1 ea N/A PRN PRN; Protocol PRN Reason: Hyperglycemia Protocol Stop: 04/14/19 02:50 Miscellaneous (Carbohydrates For Hypoglycemia) 15 - 30 gm PO UD PRN PRN Reason: Hypoglycemia Treatment Stop: 05/12/19 04:14 Miscellaneous Information (Consult) 1 ea N/A UD PRN PRN Reason: Consult Stop: 05/12/19 06:59 Miscellaneous Information (Consult Glycemic Management Pharmacy) 1 ea N/A UD PRN PRN Reason: Consult Stop: 05/12/19 08:51 Multivitamins (Multivitamin Tab) 1 tab PO QAM [facility] Stop: 05/13/19 08:59 Last Admin: 04/13/19 08:15 Dose: Not Given Documented by: Naloxone HCl (Narcan) 0.1 mg IV Q5M PRN PRN Reason: Oversedation/Resp Depression Stop: 05/12/19 19:23 Ondansetron HCl (Zofran) 4 mg IV Q6H PRN PRN Reason: Nausea And Vomiting Stop: 05/12/19 19:23 Oxycodone HCl (Roxicodone Immediate Rel) 5 - 10 mg PO Q4H PRN PRN Reason: Pain Stop: 04/26/19 19:23 Timolol Maleate (Timoptic 0.25% Oph) 1 drops OPR QAM JACQUI Stop: 05/12/19 08:59 Last Admin: 04/13/19 08:15 Dose: 1 drops Documented by: PG Care Time/CCT Total # of Minutes Spent Total Time Spent with Patient: Total time spent is greater than 50% in coordination of care (as documented) at patient's floor/unit and/or counseling patient: Critical Care Time: Yes Total Critical Care Time: 35 (1) Osteomyelitis Laterality: left Osteomyelitis location: foot Osteomyelitis type: acute hematogenous Qualified Code(s): M86.072 - Acute hematogenous osteomyelitis, left ankle and foot (2) Cardiomyopathy Cardiomyopathy type: unspecified Qualified Code(s): I42.9 - Cardiomyopathy, unspecified
[2019-04-13] MEDS ORDERED: FUROSEMIDE 20 MG in SYRINGE 0 ML IV ONE (08:47)
[2019-04-13] MEDS ORDERED: MULTIVITAMIN TAB PO SCH (09:00)
[2019-04-13] MEDS ORDERED: FUROSEMIDE 40 MG/4 ML VIAL IV SCH (09:00)
[2019-04-13] MEDS: INSULIN GLARGINE SOLOSTAR 100 UNITS/ML 3 ML PEN SC SCH (09:14)
--- NOTE | 2019-04-13 10:44 | Cardiology Progress Note ---
Date of Service April 13, 2019 Assessment & Plan (1) Elevated troponin I level: Possibly secondary to acute illness versus demand based ischemia with him previously recognized coronary disease new onset cardiomyopathy Plan continue beta-latisha increasing to every 4 hours dosing given stable blood pressures (2) Cardiomyopathy: Newly diagnosed anticipate medical management as clinical course progresses, acute issues of sepsis and osteomyelitis addressed with BKA (3) Acute systolic heart failure: (4) Sepsis: Renal function stable patient on appropriate medical therapies, source addressed status post BKA (5) Osteomyelitis: (6) Altered mental status: (7) PVD (peripheral vascular disease): Subjective Seen and examined, chart medications telemetry reviewed. Patient somnolent but will respond to stimulus. Has been receiving pain medication status post surgical procedure last night. Blood pressures are demonstrating stability. Remains tachycardic to a mild degree of improving Unable to verbalize any additional complaints or information Physical Exam Constitutional: + ill appearing and + altered mental status Eyes: PERRL, conjunctivae normal, anicteric sclerae Neck: trachea midline, no thyromegaly Respiratory: Auscultation: + diminished lung sounds; no rales Cardiovascular: Rate/Rhythm: + tachycardic Heart Sounds: normal S1 and normal S2 Gastrointestinal (Abdomen): Inspection/Auscultation: normal bowel sounds Percussion/Palpation: abdomen soft Musculoskeletal: Status post left BKA with site bandaged. Chronic right BKA without issue Results & Data Vital Signs (Past 12 Hours) Vital Signs Temp Pulse Resp BP Pulse Ox 04/13/19 10:00 99 H 12 122/72 95 04/13/19 09:00 97 H 23 113/60 95 04/13/19 08:00 36.8 C 106 H 18 128/66 92 04/13/19 07:00 92 H 21 108/66 96 04/13/19 06:33 103 H 115/66 04/13/19 06:20 102 H 20 96 04/13/19 06:10 101 H 20 97 04/13/19 06:00 102 H 22 115/66 94 04/13/19 05:50 101 H 22 95 04/13/19 05:40 100 H 21 97 04/13/19 05:30 100 H 19 98 04/13/19 05:20 99 H 20 98 04/13/19 05:10 102 H 20 96 04/13/19 05:00 105 H 16 122/72 98 04/13/19 04:50 105 H 14 04/13/19 04:40 99 H 23 97 04/13/19 04:30 98 H 20 96 04/13/19 04:20 36.6 C 98 H 22 96 04/13/19 04:10 100 H 21 96 04/13/19 04:00 98 H 20 121/82 96 04/13/19 03:50 98 H 20 96 04/13/19 03:40 98 H 23 97 04/13/19 03:30 96 H 20 96 04/13/19 03:20 97 H 25 H 96 04/13/19 03:10 96 H 21 94 04/13/19 03:00 95 H 19 140/68 96 04/13/19 02:50 96 H 19 97 04/13/19 02:40 95 H 20 97 04/13/19 02:30 94 H 13 97 04/13/19 02:20 95 H 23 96 04/13/19 02:10 94 H 21 97 04/13/19 02:00 94 H 22 112/64 96 04/13/19 01:50 94 H 19 96 04/13/19 01:40 95 H 23 95 04/13/19 01:30 95 H 22 96 04/13/19 01:20 93 H 20 96 04/13/19 01:10 93 H 21 96 04/13/19 01:00 94 H 21 124/70 96 04/13/19 00:50 92 H 22 96 04/13/19 00:40 91 H 21 96 04/13/19 00:30 90 23 94 04/13/19 00:20 88 21 94 04/13/19 00:10 91 H 21 92 04/13/19 00:03 102 H 125/75 04/13/19 00:00 36.5 C 102 H 21 125/75 93 04/12/19 23:50 101 H 22 92 04/12/19 23:40 104 H 21 92 04/12/19 23:30 102 H 23 92 04/12/19 23:20 102 H 23 92 04/12/19 23:10 102 H 23 91 04/12/19 23:00 103 H 23 112/72 92 04/12/19 22:50 103 H 24 92 Laboratory Results Laboratory Results - last 24 hr 0704/12/19 04/12/19 10:53 11:27 13:05 WBC RBC Hgb Hct MCV MCH MCHC RDW Std Deviation RDW Coeff of Toy Plt Count MPV Immature Gran % (Auto) Neut % (Auto) Lymph % (Auto) Garden % (Auto) Eos % (Auto) Baso % (Auto) Immature Gran # (Auto) Neut # (Auto) Lymph # (Auto) Garden # (Auto) Eos # (Auto) Baso # (Auto) PT 12.7 H INR 1.3 H APTT 39.0 H PTT Ratio 1.4 Sodium Potassium Chloride Carbon Dioxide Anion Gap BUN Creatinine Est Cr Clr Drug Dosing Est GFR ( Amer) Est GFR (Non-Af Amer) BUN/Creatinine Ratio Glucose POC Glucose 167 H Estimat Average Glucose Hemoglobin A1c Calcium Phosphorus Magnesium Total Bilirubin Direct Bilirubin AST ALT Alkaline Phosphatase Troponin I 3.000 H* Total Protein Albumin Procalcitonin Blood Type Antibody Screen 04/12/19 04/12/19 04/12/19 14:08 14:12 18:34 WBC RBC Hgb Hct MCV MCH MCHC RDW Std Deviation RDW Coeff of Toy Plt Count MPV Immature Gran % (Auto) Neut % (Auto) Lymph % (Auto) Garden % (Auto) Eos % (Auto) Baso % (Auto) Immature Gran # (Auto) Neut # (Auto) Lymph # (Auto) Garden # (Auto) Eos # (Auto) Baso # (Auto) PT INR APTT PTT Ratio Sodium Potassium Chloride Carbon Dioxide Anion Gap BUN Creatinine Est Cr Clr Drug Dosing Est GFR ( Amer) Est GFR (Non-Af Amer) BUN/Creatinine Ratio Glucose POC Glucose 181 H 158 H Estimat Average Glucose Hemoglobin A1c Calcium Phosphorus Magnesium Total Bilirubin Direct Bilirubin AST ALT Alkaline Phosphatase Troponin I Total Protein Albumin Procalcitonin Blood Type AB Positive Antibody Screen NEGATIVE 04/12/19 04/12/19 04/13/19 18:48 20:05 00:32 WBC RBC Hgb Hct MCV MCH MCHC RDW Std Deviation RDW Coeff of Toy Plt Count MPV Immature Gran % (Auto) Neut % (Auto) Lymph % (Auto) Garden % (Auto) Eos % (Auto) Baso % (Auto) Immature Gran # (Auto) Neut # (Auto) Lymph # (Auto) Garden # (Auto) Eos # (Auto) Baso # (Auto) PT INR APTT PTT Ratio Sodium Potassium Chloride Carbon Dioxide Anion Gap BUN Creatinine Est Cr Clr Drug Dosing Est GFR ( Amer) Est GFR (Non-Af Amer) BUN/Creatinine Ratio Glucose POC Glucose 135 H 141 H Estimat Average Glucose Hemoglobin A1c Calcium Phosphorus Magnesium Total Bilirubin Direct Bilirubin AST ALT Alkaline Phosphatase Troponin I 3.330 H* Total Protein Albumin Procalcitonin Blood Type Antibody Screen 04/13/19 04/13/19 04/13/19 04:08 04:08 04:08 WBC 31.33 H* RBC 3.67 L Hgb 10.8 L Hct 31.5 L MCV 85.8 MCH 29.4 MCHC 34.3 RDW Std Deviation 44.0 RDW Coeff of Toy 13.9 Plt Count 123 L MPV 10.1 Immature Gran % (Auto) 1.4 Neut % (Auto) 89.8 Lymph % (Auto) 2.6 Garden % (Auto) 6.1 Eos % (Auto) 0.0 Baso % (Auto) 0.1 Immature Gran # (Auto) 0.45 H Neut # (Auto) 28.14 H Lymph # (Auto) 0.81 L Garden # (Auto) 1.91 H Eos # (Auto) 0.00 Baso # (Auto) 0.02 PT INR APTT PTT Ratio Sodium 134 L Potassium 4.6 Chloride 103 Carbon Dioxide 22 Anion Gap 9.0 BUN 26 H Creatinine 0.75 D Est Cr Clr Drug Dosing 82.3 Est GFR ( Amer) 104.0 Est GFR (Non-Af Amer) 89.7 BUN/Creatinine Ratio 35.1 H Glucose 196 H POC Glucose Estimat Average Glucose Pending Hemoglobin A1c Pending Calcium 7.8 L Phosphorus 4.3 Magnesium 2.4 Total Bilirubin 0.5 Direct Bilirubin 0.3 H AST 15 ALT 36 Alkaline Phosphatase 353 H Troponin I 2.290 H* Total Protein 5.7 L Albumin 1.8 L Procalcitonin Blood Type Antibody Screen 04/13/19 04/13/19 04/13/19 04:08 04:12 08:18 WBC RBC Hgb Hct MCV MCH MCHC RDW Std Deviation RDW Coeff of Toy Plt Count MPV Immature Gran % (Auto) Neut % (Auto) Lymph % (Auto) Garden % (Auto) Eos % (Auto) Baso % (Auto) Immature Gran # (Auto) Neut # (Auto) Lymph # (Auto) Garden # (Auto) Eos # (Auto) Baso # (Auto) PT INR APTT PTT Ratio Sodium Potassium Chloride Carbon Dioxide Anion Gap BUN Creatinine Est Cr Clr Drug Dosing Est GFR ( Amer) Est GFR (Non-Af Amer) BUN/Creatinine Ratio Glucose POC Glucose 126 H 185 H Estimat Average Glucose Hemoglobin A1c Calcium Phosphorus Magnesium Total Bilirubin Direct Bilirubin AST ALT Alkaline Phosphatase Troponin I Total Protein Albumin Procalcitonin 2.49 H Blood Type Antibody Screen (1) Cardiomyopathy Cardiomyopathy type: unspecified Qualified Code(s): I42.9 - Cardiomyopathy, unspecified (2) Sepsis Sepsis type: sepsis due to unspecified organism Qualified Code(s): A41.9 - Sepsis, unspecified organism (3) Osteomyelitis Laterality: left Osteomyelitis location: foot Osteomyelitis type: acute hematogenous Qualified Code(s): M86.072 - Acute hematogenous osteomyelitis, left ankle and foot (4) Altered mental status Altered mental status type: delirium Qualified Code(s): R41.0 - Disorientation, unspecified
[2019-04-13] MEDS ORDERED: VANCOMYCIN TROUGH ONE (11:30)
--- NOTE | 2019-04-13 13:37 | Pharmacy Report ---
Pharmacy Abx Dose Short Note - Date of Service April 13, 2019 - Assessment & Plan Laboratory Tests 04/13/19 11:17 Vancomycin Trough 12.7 Assessment 73 year old M receiving Vancomycin 1000mg IV q12 for treatment of likely osteomyelitis- status post BKA Day #3 of antimicrobial therapy. Plan Vancomycin * Trough level of 12.7 mcg/mL is subtherapeutic, but this level was drawn prior to steady state * Change to 1000 mg IV every 10 hours * Patient's estimated t1/2 is now 9.6 hrs * Goal trough level for osteo/SST : 15-20 mcg/mL * Trough level ordered for: 04/14/19 at 1530 Pharmacy will continue to follow and will adjust dose/frequency as necessary. Thank you.
[2019-04-13] MEDS ORDERED: PIPERACILL/TAZOBAC CONSULT ACTIVE PRN (14:38)
[2019-04-13] MEDS ORDERED: ACETAMINOPHEN 65 ML IV PRN ×2 (14:45→15:00)
[2019-04-13] MEDS ORDERED: PIPERACILLIN/TAZOBACTAM 3.375 GM in DEXTROSE 5% 100 ML IV ONE (15:00)
--- NOTE | 2019-04-13 15:06 | Hospitalist Progress Note ---
Date of Service April 13, 2019 Assessment & Plan (1) Sepsis: This is a 73-year-old male with past medical history significant for type 1 diabetes, peripheral angiopathy due to diabetes, hypothyroidism, hyperlipidemia, reflux esophagitis, history of right BKA, status post transmetatarsal amputation of the left foot, contractures of muscles of both hands, blindness in the left eye. Presents with confusion and found to be in sepsis. Severe sepsis Metabolic Encephalopathy Peripheral vascular disease Left foot osteomyelitis of the cuboid/Fasciitis. s/p left below knee amputation of the leg Bactermia from Group B strep -admission to ICU because of sepsis (Point of care lactic acid 6.1, white count is 35,000, tachycardic), Received 1 L of fluid and vancomycin and Rocephin in the ER -has been on on IV vancomycin and ceftriaxone and metronidazole via PICC line in ICU on 04/12/19 -s/p Left below knee amputation because of Left foot osteomyelitis of the cuboid/Fasciitis on 04/12/19 -admission blood cultures as Group B strep, prior wound culture of left foot with Group B strep and gram negative bacilli.spoke with infectious disease Dr. Painting on 04/13/19 and at this time stop all antibiotics and switch to Zosyn for now -pain medications, bowel regimen Elevated Troponins Acute systolic Congestive Heart Failure -Newly diagnosed cardiomyopathy; evidence of acute decompensated heart failure per chest x-ray. -as per cardiology assessment on 04/12/19 Troponins elevation likely type II event secondary to demand ischemia in the setting of tachycardia, sepsis, with increased oxygen demands. -Daughter Sharon [phone] who is patient's next of kin and Code Status for patient as per her understanding of patient's wishes is DO NOT RESUSCITATE and DO NOT INTUBATE -initial cardiology recommendations were made to start IV heparin for 48 hours as patient's may have possible acute ischemia of the heart. however since patient had recent left below knee amputation that heparin drip can cause acute bleeding or poor wound healing. patient's daughter agrees that heparin drip should not be started and that if patient had any acute cardiac or respiratory distress that medical team should follow the DO NOT RESUSCITATE and DO NOT INTUBATE code status -2.5 mg IV q4 hours metoprolol -Lasix IV scheduled as 20 mg IV TID for cardiomegaly with evidence of congestive failure and interstitial edema -monitor urine output and weights -PT/OT evaluations -Restart aspirin, cilostazol, and statin therapy when patient able to tolerate oral medications. Patient not swallowing pills at this time keep NPO Obtain speech and swallow evaluation Acute kidney injury -creatinine downtrended after IV fluids on this admission -monitor renal function Hypothyroidism -takes 125 mcg daily for 5 days out of a week -admitting hospitalist ordered IV Levothyroxine as 62.5 mcg IV equivalent but will hold off thyroid supplements for now given tachycardia Diabetes Mellitus Type I -pharmacy glycemic control consult to manage insulin requirements Gastroesophageal reflux disease -IV Pepcid Hyponatremia -Sodium of 130 on admission and repeat is 131 -sodium now 134 -trend blindness in the left eye -chronic and has eye prosthesis Daughter Sharon [phone] who is patient's next of kin and Code Status for patient as per her understanding of patient's wishes is DO NOT RESUSCITATE and DO NOT INTUBATE disposition: transition from ICU to PCU/telemetry Subjective Patient in ICU. breathing on room air. rate of breathing is normal. mild tachycardia. left leg below knee stump in dressing. patient is awake and and hard of hearing. appears to hear better of right ear. not able to take oral medications as per nurse. mental status is not baseline. patient at times groans or goes back to sleep Physical Exam Constitutional: + altered mental status Eyes: left eye prosthesis ENMT: external ear and nose normal, oropharynx normal Neck: normal visual inspection Respiratory: normal respiratory effort Auscultation: + crackles Cardiovascular: Rate/Rhythm: regular rhythm and + tachycardic Gastrointestinal (Abdomen): Inspection/Auscultation: abdomen normal to inspection and normal bowel sounds Musculoskeletal: left below knee stump in dressing Neurologic: moves extremities. limited answers to questions. hearing or right ear is better Results & Data Vital Signs (Past 12 Hours) Vital Signs Temp Pulse Resp BP Pulse Ox 04/13/19 14:00 107 H 19 133/74 98 04/13/19 13:00 101 H 19 127/79 96 04/13/19 12:04 103 H 140/84 04/13/19 12:00 36.9 C 104 H 18 140/84 95 04/13/19 11:00 110 H 13 123/83 94 04/13/19 10:00 99 H 12 122/72 95 04/13/19 09:00 97 H 23 113/60 95 04/13/19 08:00 36.8 C 106 H 18 128/66 92 04/13/19 07:00 92 H 21 108/66 96 04/13/19 06:33 103 H 115/66 04/13/19 06:20 102 H 20 96 04/13/19 06:10 101 H 20 97 04/13/19 06:00 102 H 22 115/66 94 04/13/19 05:50 101 H 22 95 04/13/19 05:40 100 H 21 97 04/13/19 05:30 100 H 19 98 04/13/19 05:20 99 H 20 98 04/13/19 05:10 102 H 20 96 04/13/19 05:00 105 H 16 122/72 98 04/13/19 04:50 105 H 14 04/13/19 04:40 99 H 23 97 04/13/19 04:30 98 H 20 96 04/13/19 04:20 36.6 C 98 H 22 96 04/13/19 04:10 100 H 21 96 04/13/19 04:00 98 H 20 121/82 96 04/13/19 03:50 98 H 20 96 04/13/19 03:40 98 H 23 97 04/13/19 03:30 96 H 20 96 04/13/19 03:20 97 H 25 H 96 04/13/19 03:10 96 H 21 94 (1) Sepsis Sepsis type: sepsis due to unspecified organism Qualified Code(s): A41.9 - Sepsis, unspecified organism
--- NOTE | 2019-04-13 15:15 | Infectious Disease Consult ---
Date of Consultation April 13, 2019 Assessment & Plan (1) Streptococcal sepsis: 73-year-old male with streptococcal sepsis from osteomyelitis and gangrene of the left foot now status post amputation. Wound culture also growing gram- negative bacilli, so was discussed with Dr. Graff, patient changed to IV Zosyn. Will adjust once final culture results are available. Will follow. (2) Osteomyelitis of left foot: History of Present Illness Reason for Consultation: Strep bacteremia, osteomyelitis status post amputation Attending Physician: Jamie Graff MD History of Present Illness 73-year-old complex medical history diabetes mellitus arterial disease status post right foot transmetatarsal osteomyelitis was admitted to the hospital with sepsis and septic shock. He was found to have severe necrotizing infection left foot, and is now undergone emergent BKA amputation. Patient has remained lethargic and poorly responsive. Blood cultures now growing group B streptococcus, culture from foot wound also growing gram-negative bacilli. Patient has been on ceftriaxone and metronidazole. White count markedly elev ated at 37,000 after surgery. Cultures are pending. Allergies Allergy/AdvReac Type Severity Reaction Status Date / Time No Known Allergies Verified 04/11/19 23:54 Home Medications Home Medications Medication Instructions Recorded Confirmed Type alpha lipoic acid 100 mg PO BID 04/11/19 04/12/19 History aspirin [Aspir-81] 81 mg PO DAILY 04/11/19 04/11/19 History atorvastatin 20 mg PO DAILY 04/11/19 04/12/19 History bimatoprost [Lumigan] 1 drp OPR HS 04/11/19 04/11/19 History cephalexin 500 mg PO TID 04/11/19 04/11/19 History insulin aspart U-100 [Novolog 0 unit SUBCUT DIRECTED 04/11/19 04/12/19 History Flexpen U-100 Insulin] levothyroxine 125 mcg PO 5XWK 04/11/19 04/12/19 History multivitamin 1 tab PO DAILY 04/11/19 04/11/19 History omeprazole 20 mg PO .BIDM 30 MINS. PRIOR 04/11/19 04/11/19 History omeprazole 20 mg PO .BIDM, 30 MIN PRIOR 04/11/19 04/12/19 History sulfamethoxazole-trimethoprim 1 tab PO BID 04/11/19 04/11/19 History [Bactrim DS] timolol 1 drp OPR QAM 04/11/19 04/11/19 History tramadol 50 mg PO Q6H PRN 04/11/19 04/11/19 History urea 1 applic TOPICAL BID PRN 04/11/19 04/11/19 History cilostazol 100 mg PO BID 04/12/19 04/12/19 History gabapentin 100 mg PO TID 04/12/19 04/12/19 History insulin glargine [Lantus Solostar 20 unit SUBCUT DAILY 04/12/19 04/12/19 History U-100 Insulin] Patient History Medical History PVD (peripheral vascular disease) Sepsis Acute systolic heart failure Cardiomyopathy Elevated troponin I level Acute kidney injury superimposed on CKD NSTEMI (non-ST elevated myocardial infarction) Arthritis Cardiomyopathy Diabetes Foot infection Surgical History Amputated below knee Amputated toe of left foot Family History Other No significant family history Social History Preferred Language: Polish Communication Ability: Unable Beliefs That Will Affect Care: None Current Living Situation: Family Feels Safe at Home: Declines to Answer Smoking Status: Unknown if ever smoked Hx Alcohol Use: No Hx Substance Use: No Review of Systems Review of Systems: Unobtainable due to cognitive status Physical Exam Constitutional: well developed, well nourished and + altered mental status; no acute distress Eyes: PERRL, conjunctivae normal, anicteric sclerae ENMT: external ear and nose normal, oropharynx normal Neck: trachea midline, no thyromegaly Respiratory: normal respiratory effort; no respiratory distress Cardiovascular: RRR, no murmur, no edema Rate/Rhythm: + tachycardic Gastrointestinal (Abdomen): normal bowel sounds, soft, nontender, no hepatosplenomegaly Percussion/Palpation: no abdominal mass Musculoskeletal: Head/Neck/Chest: normocephalic and head atraumatic Extremities: no cyanosis Skin: no rashes, warm and dry Dressing in place left leg Neurologic: moves all extremities; no focal motor deficits Psychiatric: Orientation: + not oriented x 3 Lymphatic: no cervical or axillary lymphadenopathy no inguinal lymphadenopathy Results & Data Vital Signs (Past 12 Hours) Vital Signs Temp Pulse Resp BP Pulse Ox 04/13/19 14:00 107 H 19 133/74 98 04/13/19 13:00 101 H 19 127/79 96 04/13/19 12:04 103 H 140/84 04/13/19 12:00 36.9 C 104 H 18 140/84 95 04/13/19 11:00 110 H 13 123/83 94 04/13/19 10:00 99 H 12 122/72 95 04/13/19 09:00 97 H 23 113/60 95 04/13/19 08:00 36.8 C 106 H 18 128/66 92 04/13/19 07:00 92 H 21 108/66 96 04/13/19 06:33 103 H 115/66 04/13/19 06:20 102 H 20 96 04/13/19 06:10 101 H 20 97 04/13/19 06:00 102 H 22 115/66 94 04/13/19 05:50 101 H 22 95 04/13/19 05:40 100 H 21 97 04/13/19 05:30 100 H 19 98 04/13/19 05:20 99 H 20 98 04/13/19 05:10 102 H 20 96 04/13/19 05:00 105 H 16 122/72 98 04/13/19 04:50 105 H 14 04/13/19 04:40 99 H 23 97 04/13/19 04:30 98 H 20 96 04/13/19 04:20 36.6 C 98 H 22 96 04/13/19 04:10 100 H 21 96 04/13/19 04:00 98 H 20 121/82 96 04/13/19 03:50 98 H 20 96 04/13/19 03:40 98 H 23 97 04/13/19 03:30 96 H 20 96 04/13/19 03:20 97 H 25 H 96 Laboratory Results Short CBC 04/13/19 Range/Units 04:08 WBC 31.33 H* (4.8-10.8) K/uL Hgb 10.8 L (14.0-18.0) g/dL Hct 31.5 L (42-52) % Plt Count 123 L (130-400) K/uL BMP 04/13/19 04:08 Sodium 134 L Potassium 4.6 Chloride 103 Carbon Dioxide 22 BUN 26 H Creatinine 0.75 D Glucose 196 H Calcium 7.8 L Cardiac Enzymes 04/12/19 04/13/19 Range/Units 18:48 04:08 Troponin I 3.330 H* 2.290 H* (0-0.045) ng/ml Liver Function 04/13/19 Range/Units 04:08 Total Bilirubin 0.5 (0.2-1) mg/dl Direct Bilirubin 0.3 H (0-0.2) mg/dl AST 15 (15-37) U/L ALT 36 (12-78) U/L Alkaline Phosphatase 353 H (45-117) U/L Albumin 1.8 L (3.4-5.0) gm/dl Diagnostic Findings Microbiology 04/11/19 23:39 Blood Aerobic Blood Culture - Preliminary Group G Beta Strep 04/11/19 23:39 Blood Anaerobic Blood Culture - Final 04/11/19 23:25 Blood Aerobic Blood Culture - Preliminary Group G Beta Strep 04/11/19 23:25 Blood Anaerobic Blood Culture - Final 04/12/19 Unknown Urine,Clean Catch Urine Culture - Preliminary No growth - Less than 1,000 colonies/mL, Final report to follow. 04/11/19 23:10 Foot,Left Gram Stain - Final 04/11/19 23:10 Foot,Left Wound Culture - Preliminary Gram negative bacilli Group G Beta Strep cc: ~ SINGLE VIEW CHEST CLINICAL HISTORY: Follow-up pulmonary edema. FINDINGS: An AP, portable, upright chest radiograph is compared to study dated 04/12/2019. The examination is degraded by portable technique and patient rotation. A right PICC line is unchanged in position. The tip of the catheter projects over the right atrium. The heart is enlarged noting atherosclerotic calcification of the thoracic aorta. There is pulmonary vascular congestion and interstitial edema. There are layering pleural effusions with bibasilar consolidation. No pneumothorax is seen. The skeletal structures are osteopenic. The bony thorax is grossly intact. An IV catheter is noted in the left neck. IMPRESSION: 1. Cardiomegaly with evidence of congestive failure and interstitial edema. This has not significantly changed from yesterday. 2. Layering pleural effusions with bibasilar consolidation. Electronically signed by: Jay Paiz M.D. 04/13/2019 7:11 AM
[2019-04-13] MEDS ORDERED: VANCOMYCIN HCL 1,000 MG in SODIUM CHLORIDE 0.9% 250 ML IV SCH (20:00)
[2019-04-13] MEDS: BIMATOPROST 0.01% OP SOLN 2.5 ML BTL OPR SCH (20:16)
[2019-04-13] MEDS: PIPERACILLIN/TAZOBACTAM 3.375 GM in DEXTROSE 5% 100 ML IV SCH (20:23)
[2019-04-13] MEDS: FUROSEMIDE 20 MG in SYRINGE 0 ML IV SCH (20:23)
[2019-04-13] MEDS ORDERED: INSULIN GLARGINE SOLOSTAR 100 UNITS/ML 3 ML PEN SC ONE (21:00)
[2019-04-14] MEDS: METOPROLOL TARTRATE 1 MG/ML VIAL IV SCH ×4 (00:05→12:15)
[2019-04-14] MEDS: PIPERACILLIN/TAZOBACTAM 3.375 GM in DEXTROSE 5% 100 ML IV SCH ×2 (03:21→12:21)
[2019-04-14] MEDS: INSULIN ASPART 100 UNITS/ML 3 ML PEN SC SCH ×3 (04:03→11:53)
[2019-04-14 07:02] LABS: Hematocrit (blood only) 31.9 % (42-52); Hemoglobin 10.9 g/dL (14.0-18.0); Mean Corpuscular Hgb Conc 34.2 g/dL (32-36); Mean Corpuscular Volume 84.2 fL (80-100); Mean Platelet Volume 9.8 fL (7.4-10.4); Platelet Count 121 K/uL (130-400); RDW Coefficient of Variation 13.8 % (11.5-14.5); RDW Standard Deviation 42.2 fL (36.4-46.3); Red Blood Count 3.79 M/uL (4.7-6.1); White Blood Count 20.57 K/uL (4.8-10.8)
[2019-04-14 07:28] LABS: Basophils # (auto) 0.02 K/uL (0-0.2); Basophils % (auto) 0.1 %; Immature Granulocytes # (auto) 0.16 K/uL (0.00-0.02); Immature Granulocytes % (auto) 0.8 %; Lymphocytes # (auto) 0.86 K/uL (1.2-3.4); Lymphocytes % (auto) 4.2 %; Monocytes # (auto) 1.81 K/uL (0.11-0.59); Monocytes % (auto) 8.8 %; Neutrophils # (auto) 17.72 K/uL (1.4-6.5); Neutrophils % (auto) 86.1 %; Toxic Granulation 1+
[2019-04-14 07:42] LABS: Albumin Globulin Ratio 0.5 (0.9-2); Albumin Level 1.8 gm/dl (3.4-5.0); BUN Creatinine Ratio 30.1 (10-20); Bilirubin,Total 0.7 mg/dl (0.2-1); Creatinine Clr Calc Pharmacy 73.5 ml/min; Est GFR (African American) 99.3; Est GFR (Non-African American) 85.7; Magnesium 2.1 mg/dl (1.8-2.4); Phosphorus 2.9 mg/dl (2.5-4.9); Potassium 3.6 mmol/L (3.5-5.1); Total Protein 5.8 gm/dl (6.4-8.2)
[2019-04-14] MEDS: INSULIN GLARGINE SOLOSTAR 100 UNITS/ML 3 ML PEN SC SCH (08:23)
[2019-04-14] MEDS: FAMOTIDINE 20 MG in SYRINGE 3 ML IV SCH (08:49)
[2019-04-14] MEDS: FUROSEMIDE 20 MG in SYRINGE 0 ML IV SCH (08:50)
[2019-04-14] MEDS: TIMOLOL MALEATE 0.25% OP SOLN 5 ML BTL OPR SCH (08:52)
--- NOTE | 2019-04-14 10:32 | Cardiology Progress Note ---
Date of Service April 14, 2019 Assessment & Plan (1) Elevated troponin I level: Possibly secondary to acute illness versus demand based ischemia with him previously recognized coronary disease new onset cardiomyopathy Plan continue beta-latisha increasing to every 4 hours dosing given stable blood pressures. Still not taking p.o. and will continue IV furosemide and IV metoprolol Mental status not clearing. Pulmonary status stable without pulmonary edema though diminished respiratory excursion Continue aspiration precaution (2) Cardiomyopathy: Newly diagnosed anticipate medical management as clinical course progresses, acute issues of sepsis and osteomyelitis addressed with BKA (3) Acute systolic heart failure: (4) Sepsis: Renal function stable patient on appropriate medical therapies, source addressed status post BKA (5) Osteomyelitis: (6) Altered mental status: (7) PVD (peripheral vascular disease): Complex 73-year old type I diabetic admitted with change of mental status and sepsis related to osteomyelitis. Newly diagnosed cardiomyopathy with evidence of acute decompensated heart failure per chest x-ray. Chronicity of cardiopathy is unknown at this time. Troponins elevation likely type II event secondary to demand ischemia in the setting of tachycardia, sepsis, with increased oxygen demands. Agree with cautious IV hydration in the setting of sepsis with close monitoring of respiratory status. Patient may require small dose of IV Lasix to maintain adequate oxygenation. Initiate heparin infusion x48 hours with close observation. Add low-dose IV beta-latisha and therapy as tolerated to decrease heart rate and lower oxygen demands at this time. Restart aspirin, cilostazol, and statin therapy when patient able to tolerate oral medications. I would have a low threshold for discontinuing beta-latisha if there is evidence of progressive hypotension. Supportive care and treatment of sepsis as per panel cutter service. Patient considered high perioperative cardiovascular risk for any operations including amputation at this time. Subjective Seen and examined, chart medications telemetry reviewed. Patient somnolent but will respond to stimulus. Unable to verbalize any additional complaints or information Physical Exam Constitutional: + ill appearing and + altered mental status Eyes: PERRL, conjunctivae normal, anicteric sclerae Neck: trachea midline, no thyromegaly Respiratory: Auscultation: + diminished lung sounds; no rales Coarse upper airway sounds Cardiovascular: Rate/Rhythm: regular rate and regular rhythm Heart Sounds: normal S1 and normal S2 Extremities: + edema (1-2+ diffuse) Gastrointestinal (Abdomen): Inspection/Auscultation: normal bowel sounds Percussion/Palpation: abdomen soft Musculoskeletal: Status post BKA incision bandaged Results & Data Vital Signs (Past 12 Hours) Vital Signs Temp Pulse Pulse Pulse Resp BP Pulse Ox 04/14/19 07:18 36.7 C 98 H 22 134/72 94 04/14/19 04:01 36.3 C L 102 H 20 141/72 H 93 04/14/19 00:05 106 H 04/13/19 23:49 36.5 C 102 H 22 112/62 95 Laboratory Results Laboratory Results - last 24 hr 04/13/19 04/13/19 04/13/19 11:17 12:07 16:28 WBC RBC Hgb Hct MCV MCH MCHC RDW Std Deviation RDW Coeff of Toy Plt Count MPV Immature Gran % (Auto) Neut % (Auto) Lymph % (Auto) Wheeler % (Auto) Eos % (Auto) Baso % (Auto) Immature Gran # (Auto) Neut # (Auto) Lymph # (Auto) Wheeler # (Auto) Eos # (Auto) Baso # (Auto) Toxic Granulation Sodium Potassium Chloride Carbon Dioxide Anion Gap BUN Creatinine Est Cr Clr Drug Dosing Est GFR ( Amer) Est GFR (Non-Af Amer) BUN/Creatinine Ratio Glucose POC Glucose 192 H 191 H Calcium Phosphorus Magnesium Total Bilirubin AST ALT Alkaline Phosphatase Total Protein Albumin Globulin Albumin/Globulin Ratio Vancomycin Trough 12.7 04/13/19 04/13/19 04/14/19 20:12 23:51 04:03 WBC RBC Hgb Hct MCV MCH MCHC RDW Std Deviation RDW Coeff of Toy Plt Count MPV Immature Gran % (Auto) Neut % (Auto) Lymph % (Auto) Wheeler % (Auto) Eos % (Auto) Baso % (Auto) Immature Gran # (Auto) Neut # (Auto) Lymph # (Auto) Wheeler # (Auto) Eos # (Auto) Baso # (Auto) Toxic Granulation Sodium Potassium Chloride Carbon Dioxide Anion Gap BUN Creatinine Est Cr Clr Drug Dosing Est GFR ( Amer) Est GFR (Non-Af Amer) BUN/Creatinine Ratio Glucose POC Glucose 193 H 140 H 95 Calcium Phosphorus Magnesium Total Bilirubin AST ALT Alkaline Phosphatase Total Protein Albumin Globulin Albumin/Globulin Ratio Vancomycin Trough 04/14/19 04/14/19 04/14/19 06:38 06:38 07:15 WBC 20.57 H RBC 3.79 L Hgb 10.9 L Hct 31.9 L MCV 84.2 MCH 28.8 MCHC 34.2 RDW Std Deviation 42.2 RDW Coeff of Toy 13.8 Plt Count 121 L MPV 9.8 Immature Gran % (Auto) 0.8 Neut % (Auto) 86.1 Lymph % (Auto) 4.2 Wheeler % (Auto) 8.8 Eos % (Auto) 0.0 Baso % (Auto) 0.1 Immature Gran # (Auto) 0.16 H Neut # (Auto) 17.72 H Lymph # (Auto) 0.86 L Wheeler # (Auto) 1.81 H Eos # (Auto) 0.00 Baso # (Auto) 0.02 Toxic Granulation 1+ Sodium 138 Potassium 3.6 D Chloride 105 Carbon Dioxide 27 Anion Gap 6.0 BUN 25 H Creatinine 0.84 Est Cr Clr Drug Dosing 73.5 Est GFR ( Amer) 99.3 Est GFR (Non-Af Amer) 85.7 BUN/Creatinine Ratio 30.1 H Glucose 80 POC Glucose 79 Calcium 8.0 L Phosphorus 2.9 D Magnesium 2.1 Total Bilirubin 0.7 AST 17 ALT 26 Alkaline Phosphatase 253 H Total Protein 5.8 L Albumin 1.8 L Globulin 4.0 Albumin/Globulin Ratio 0.5 L Vancomycin Trough (1) Cardiomyopathy Cardiomyopathy type: unspecified Qualified Code(s): I42.9 - Cardiomyopathy, unspecified (2) Sepsis Sepsis type: sepsis due to unspecified organism Qualified Code(s): A41.9 - Sepsis, unspecified organism (3) Osteomyelitis Laterality: left Osteomyelitis location: foot Osteomyelitis type: acute hematogenous Qualified Code(s): M86.072 - Acute hematogenous osteomyelitis, left ankle and foot (4) Altered mental status Altered mental status type: delirium Qualified Code(s): R41.0 - Disorientation, unspecified
--- NOTE | 2019-04-14 10:59 | Orthopedic Progress Note ---
Date of Service April 14, 2019 Assessment & Plan (1) Osteomyelitis of left foot: POD #2 s/p left BKA Dressing changed today with adaptic cut to the size of the incision, gauze, ABD, kerlix, ARELIS. Hemovac removed during dressing change. D/C planning--uncertain at this time. Subjective Seen and examined, chart reviewed. Patient somnolent but will respond to stimulus. Unable to verbalize any additional complaints or information Physical Exam Musculoskeletal: Left lower leg: BKA stump well approximated flap incision. No erythema. Minimal bloody drainage at the lateral aspect. The hemovac had drained 15 cc total since surgery so it was removed during dressing change. Patient has some guarding with the dressing change. Results & Data Vital Signs (Past 12 Hours) Vital Signs Temp Pulse Pulse Pulse Resp BP Pulse Ox 04/14/19 08:00 106 H 04/14/19 07:18 36.7 C 98 H 22 134/72 94 04/14/19 04:01 36.3 C L 102 H 20 141/72 H 93 04/14/19 00:05 106 H 04/13/19 23:49 36.5 C 102 H 22 112/62 95
[2019-04-14] MEDS ORDERED: D5W AND 1/2NSS 1,000 ML IV SCH (11:15)
--- NOTE | 2019-04-14 11:37 | XRay Report ---
XR chest 1V portable HISTORY: shortness of breath COMPARISON: Chest 04/13/2019. FINDINGS: Interval improvement in the pulmonary edema pattern. No pneumothorax. Right PICC terminates in the SVC. The heart remains borderline enlarged. Trace bilateral pleural effusions have also impro chey. IMPRESSION: Interval improvement in the pulmonary edema and trace bilateral pleural effusions. Electronically signed by: Kamari Neumann M.D. 04/14/2019 11:36 AM
[2019-04-14] MEDS ORDERED: FUROSEMIDE 20 MG in SYRINGE 0 ML IV ONE (11:45)
--- NOTE | 2019-04-14 12:11 | Pharmacy Report ---
Pharmacy Glycemic Short Note 2 - Date of Service April 14, 2019 - Glycemic Short BSG Results (Last 24 hours): 04/13/19 04/13/19 04/13/19 12:07 16:28 20:12 Glucose POC Glucose 192 H 191 H 193 H 04/13/19 04/14/19 04/14/19 23:51 04:03 06:38 Glucose 80 POC Glucose 140 H 95 04/14/19 04/14/19 04/14/19 07:15 11:13 11:14 Glucose POC Glucose 79 69 L* 74 OUTPATIENT ANTIDIABETIC REGIMEN: * Lantus 20 units SC daily * Novolog sliding scale (4-14 units SC, starting with BSG above 100 mg/dL) * A1c unknown. On order for 04/13/19 ASSESSMENT: * 73 yo M with diabetes admitted with likely osteomyelitis of L foot * POD#2 s/p left BKA * Pt's mental status not clearing - unresponsive. Pt not taking PO * AM fasting BSG below goal range this morning secondary to poor PO intake. Will hold Lantus this morning and give very conservative Lantus scale this evening based on BSG. * D51/2NS initiated for hypo for BSG = 69mg/dl and poor PO PLAN FOR INPATIENT GLYCEMIC CONTROL: * Basal insulin * Hold Lantus dose this morning * Lantus this evening at HS based on BSG * BSG below 140 mg/dl --> HOLD * BSG 140-180 mg/dl --> 5 units * BSG above 180 mg/dl --> 10 units * Bolus insulin * NovoLog per scale Q4hrs * Goal Range: Low 120 mg/dL - High 160 mg/dL * Correction Factor: 30 mg/dL/unit * Nutritional / Prandial insulin per carb ratio of 1 unit per 11 grams CHO consumed
--- NOTE | 2019-04-14 13:52 | Death Summary ---
Date of Service April 14, 2019 Pronouncement Note Contributing Factors (1) Osteomyelitis of left foot: Additional Data Attending physician: Jamie Graff MD Patient went into asystole on the satellite project site monitor. Patient examined at the bedside. patient did not respond to tactile or verbal stimuli. no chest rise. no lung sounds. Patient did not have pulse. left prosthesis eye. right eye pupil not reactive to light. nurse also present at the bedside. Patient code status of DNR/DNI. Patient time of pronounced at 04/14/19 at 1:45 PM
[2019-04-14] MEDS ORDERED: VANCOMYCIN TROUGH ONE (15:30)
--- NOTE | 2019-04-14 16:10 | Discharge Summary ---
Date of Service April 14, 2019 Admission HPI Per Admitting Provider HISTORY OF PRESENT ILLNESS: This is a 73-year-old male with past medical history significant for type 1 diabetes, peripheral angiopathy due to diabetes, hypothyroidism, hyperlipidemia, reflux esophagitis, history of right BKA, status post transmetatarsal amputation of the left foot, contractures of muscles of both hands, blindness in the left eye. Presents with confusion and found to be in sepsis. The patient lives with daughter. He walks with the help of crutches, but lately his appetite is down and he was not feeling good. Complains of pain in his left foot. He has an ulcer in the left foot for some time now and it was draining today and he was feeling weak and dizzy, so he went to see his family doctor today.Was prescribed antibiotics, Keflex and Bactrim. But later in the day when daughter woke him up at 6.30 she saw him to get confused and agitated. It was difficult even to check his blood sugars, so he was brought in here. The patient was confused and agitated in the ER, he was tachycardic. Labs showed white count of 35,000 and point of care lactic acid was 6.18 and troponin I was 1.5. Procalcitonin was 4.23 and was given a liter of fluid and started on vancomycin and Rocephin and was called for admission. Currently, patient is still agitated, could not get any history from the patient. As per daughter, apparently was doing okay until this happened. There was no fever at home. No cough. He does complain of back pain. His bowels are moving okay and lately he is not urinating much. ALLERGIES: No known drug allergies. PAST MEDICAL HISTORY: As mentioned above. PAST SURGICAL HISTORY: Right below-knee amputation, amputation of metatarsal, left foot. Left lower extremity angioplasty of femoral popliteal. MEDICATIONS: The patient is on alpha-lipoic acid 100 mg b.i.d., omeprazole 20 mg p.o. b.i.d., Keflex and Bactrim, Lipitor 20 mg p.o. daily, levothyroxine 125 mcg p.o. daily, NovoLog sliding scale, Lantus 20 units daily, gabapentin 100 mg p.o. b.i.d., Pletal 100 mg p.o. b.i.d., Lumigan 0.01% ophthalmic solution 1 drop in the right eye at bedtime, timolol 0.25% one drop into right eye daily, urea 40% cream apply to calluses on foot as needed, multivitamins p.o. daily, aspirin 81 mg p.o. daily. SOCIAL HISTORY: Patient is , lives with his daughter. Former smoker, quit in 1989, smoked 3 packs a day for 30 years as per the records, no drug use. REVIEW OF SYMPTOMS: As per HPI. Rest of the review of systems negative. Admission Exam Per Admitting Provider PHYSICAL EXAMINATION: GENERAL: The patient is of moderate built, is currently agitated. VITAL SIGNS: Temperature 37.2, pulse 120s, respiratory rate 20, blood pressure 105/63, oxygen 95% on 3 liters. HEENT: Left eye is a glass eye. Right eye, pupil is reactive to light. No pallor, no icterus. NECK: No JVD, no neck masses, no carotid bruits. CARDIOVASCULAR: S1, S2 heard. Tachycardia. No murmurs. RESPIRATORY SYSTEM: Normal AP diameter. No accessory muscle use. No wheezing, no crackles. ABDOMEN: Soft, bowel sounds, very sluggish. No distention, no guarding. CENTRAL NERVOUS SYSTEM: Currently not oriented, agitated, moves extremities. EXTREMITIES: Status post right BKA, status post transmetatarsal amputation left foot. Left stump on the bottom of the stump has a large ulcer, which is draining and foul smelling. Principal Diagnosis Bactermia from Group B strep secondary to Left foot osteomyelitis of the cuboid/ left foot Fasciitis; sepsis, Metabolic Encephalopathy, Peripheral vascular disease, Diabetes Mellitus Type I with circulatory complications, s/p left below knee amputation of the leg,Elevated Troponins, Acute systolic Congestive Heart Failure Discharge Exam Patient went into asystole on the youth nutritional monitor. Patient examined at the bedside. patient did not respond to tactile or verbal stimuli. no chest rise. no lung sounds. Patient did not have pulse. left prosthesis eye. right eye pupil not reactive to light. nurse also present at the bedside. Patient code status of DNR/DNI. Patient time of pronounced at 04/14/19 at 1:45 PM Discharge Data Allergies Allergy/AdvReac Type Severity Reaction Status Date / Time No Known Allergies Verified 04/11/19 23:54 Consultations 04/12/19 00:51 ED Decision to Admit Stat 04/12/19 02:51 Consult Case Management - Discharge Planning Routine 04/12/19 08:00 Consult Al[employer]um [employer]rication Supervisor Routine 04/12/19 10:15 Consult Orthopedic Surgery Routine 04/12/19 11:18 Consult Cardiology Routine 04/13/19 14:36 Consult Infectious Diseases Routine Procedures Performed Operation Date: 04/12/19 10:50 Actual Procedures p Left Below Knee Amputation(Left) - Joe Porter DO Ordered Studies 04/11/19 23:02 CT head/brain wo con Urgent 04/12/19 02:07 CT abd pelvis wo con Urgent 04/12/19 03:03 CT foot LT wo con Urgent 04/12/19 15:47 US - OR guided needle placemen Routine Hospital Course (1) Osteomyelitis of left foot: (2) Sepsis: "73-year-old male with past medical history significant for type 1 diabetes, peripheral angiopathy due to diabetes, hypothyroidism, hyperlipidemia, reflux esophagitis, history of right BKA, status post transmetatarsal amputation of the left foot, contractures of muscles of both hands, blindness in the left eye. Presents with confusion and found to be in sepsis." Severe sepsis Metabolic Encephalopathy Peripheral vascular disease Left foot osteomyelitis of the cuboid/ left foot Fasciitis. s/p left below knee amputation of the leg Bactermia from Group B strep -admission to ICU because of sepsis (Point of care lactic acid 6.1, white count is 35,000, tachycardic), Received 1 L of fluid and vancomycin and Rocephin in the ER -had been on on IV vancomycin and ceftriaxone and metronidazole via PICC line in ICU on 04/12/19 -s/p Left below knee amputation because of Left foot osteomyelitis of the cuboid /Fasciitis on 04/12/19 -admission blood cultures as Group B strep, prior wound culture of left foot with Group B strep and gram negative bacilli.spoke with infectious disease Dr. Painting on 04/13/19 and at this time stop all other antibiotics and switch to Zosyn. Continued Zosyn During evaluation and treatment of sepsis patient also found to have cardiac health problems Elevated Troponins Acute systolic Congestive Heart Failure -Newly diagnosed cardiomyopathy; evidence of acute decompensated heart failure per chest x-ray. -as per cardiology assessment on 04/12/19 Troponins elevation likely type II event secondary to demand ischemia in the setting of tachycardia, sepsis, with increased oxygen demands. -Daughter Sharon [phone] who is patient's next of kin and Code Status for patient as per her understanding of patient's wishes is DO NOT RESUSCITATE and DO NOT INTUBATE -initial cardiology recommendations were made to start IV heparin for 48 hours as patient's may have possible acute ischemia of the heart. however since patient had recent left below knee amputation that heparin drip can cause acute bleeding or poor wound healing. patient's daughter agrees that heparin drip should not be started and that if patient had any acute cardiac or respiratory distress that medical team should follow the DO NOT RESUSCITATE and DO NOT INTUBATE code status -was on IV q4 hours metoprolol -was on Lasix IV scheduled as 20 mg IV TID for cardiomegaly with evidence of congestive failure and interstitial edema Other medication issues Patient not swallowing pills at this time and obtunded Acute kidney injury: was improved with IV fluids Hypothyroidism: Levothyroxine generally held as patient was tachycardia Diabetes Mellitus Type I with circulatory complications: pharmacy glycemic control consult managed insulin requirements Gastroesophageal reflux disease: was on protonix Hyponatremia: Sodium of 130 on admission trended up 138 blindness in the left eye: chronic and with left eye prosthesis Patient was transitioned from ICU to PCU/telemetry on 04/13/19 and was hemodynamically stable as he was not candidate for invasive pressure support from code status discussions with daughter and surrogate decision maker. Patient remained NPO and continue only IV medications as he was still very confused and not able to take orals 04/14/19: Patient went into asystole on the youth nutritional monitor. Patient examined at the bedside. patient did not respond to tactile or verbal stimuli. no chest rise. no lung sounds. Patient did not have pulse. left prosthesis eye. right eye pupil not reactive to light. nurse also present at the bedside. Patient code status of DNR/DNI. Patient time of pronounced at 04/14/19 at 1:45 PM Total Time Total Time Spent Total Time Spent (In Minutes): 20 Total Time Includes: Examination of the Patient, Discharge Planning, Medication Reconciliation and Communication With Other Providers Discharge Plan Discharge Items Patient Disposition: Admission Data Admit Date/Time: 04/12/19 01:50 Attending Provider: Jamie Graff Admit Provider: Ethan Lambert Primary Care Provider: Ajith Alfaro Other Providers: Ethan Lambert ; Iglesia Fournier ; Joe Porter ; Reginald Rodriguez ; Mendez Painting Service: Telemetry Other DC Date/Time DO NOT enter until pt leaves facility: 04/14/19 15:09
[2019-04-14] MEDS ORDERED: INSULIN GLARGINE SOLOSTAR 100 UNITS/ML 3 ML PEN SC ONE (21:00)
[2019-04-15 06:12] LABS: Estimated Average Glucose 220 mg/dl
== END 2019-04-14 15:09 | disposition expired | DRG 853 ==
LOC: ED 22:31 → 1E 04-12 01:50 → 2S 04-13 18:23
DX: Z89.511 Acquired absence of right leg below knee; E87.1 Hypo-osmolality and hyponatremia; Z66 Do not resuscitate; A40.1 Sepsis due to streptococcus, group B; N17.9 Acute kidney failure, unspecified; Z79.82 Long term (current) use of aspirin; R00.0 Tachycardia, unspecified; I42.9 Cardiomyopathy, unspecified; E10.52 Type 1 diabetes mellitus with diabetic peripheral angiopathy with gangrene; Z89.422 Acquired absence of other left toe(s); L03.116 Cellulitis of left lower limb; I50.21 Acute systolic (congestive) heart failure; E10.69 Type 1 diabetes mellitus with other specified complication; E03.9 Hypothyroidism, unspecified; H54.7 Unspecified visual loss; M72.9 Fibroblastic disorder, unspecified; I24.8 Other forms of acute ischemic heart disease; Z87.891 Personal history of nicotine dependence; G93.41 Metabolic encephalopathy; M86.8X7 Other osteomyelitis, ankle and foot